=== PATIENT | male | born 1955 | race Caucasian/White ===

== ENCOUNTER 2017-04-30 07:58 | Inpatient (IN) | payer OTHER ==
--- NOTE | 2017-03-31 11:49 | HISTORY & PHYSICAL EXAMINATION ---
DATE OF ADMISSION: 04/30/2017 SUBJECTIVE CHIEF COMPLAINT: Left shoulder pain. HISTORY OF PRESENT ILLNESS: The patient is a 61-year-old male who complains of left shoulder pain. He presents with pain and decreased range of motion on the left side. He states his symptoms began after falling down the stairs and catching himself with left arm. The patient has a previous history of a left rotator cuff repair. He describes the pain as aching, sharp and throbbing. He has tried cortisone injections and physical therapy with no relief and he would like to proceed with a left reverse total shoulder arthroplasty. PAST MEDICAL HISTORY: Significant for hypertension, hypercholesterolemia, anxiety, depression, history of hepatitis B. PAST SURGICAL HISTORY: Back surgery x2, right hip arthroplasty, bilateral shoulder arthroscopy, tonsillectomy. SOCIAL HISTORY: The patient states he drinks alcohol occasionally. He denies smoking or tobacco use. He denies IV drug use. He lives in a 2-story house and currently unemployed. FAMILY HISTORY: Mom has a history of heart disease and stroke. ALLERGIES: No known drug allergies. MEDICATIONS: Wellbutrin 200 mg daily, Tricor 145 mg daily, lisinopril 20 mg daily, simvastatin 20 mg daily. REVIEW OF SYSTEMS: He denies headaches, fevers, chills, double vision, blurry vision, sore throat, cough, chest pain, nausea, vomiting, diarrhea, constipation, numbness, tingling, tired, urinary difficulties, thoughts to harm himself or harm others. He is positive for joint pain and stiffness of the left shoulder as well as a history of depression. OBJECTIVE: GENERAL APPEARANCE: The patient is a 61-year-old male sitting in no acute distress, well dressed, well nourished. He is awake, alert and oriented x3. VITAL SIGNS: He is 5 foot 7 inches tall, weighs 180 pounds, blood pressure is 108/74. HEAD, EYES, EARS, NOSE, AND THROAT: Normocephalic, atraumatic. Extraocular movements are intact. PERRLA. Mucosa was moist. No septal deviation. NECK: Supple, no lymphadenopathy, no JVD, no thyromegaly. HEART: Regular rate and rhythm with no murmurs or gallops. LUNGS: Clear to auscultation. No wheezing or rhonchi. ABDOMEN: Soft, nontender, nondistended. Normal bowel sounds, no hepatosplenomegaly. EXTREMITIES: Paying particular attention to the left upper extremity he is able to actively flex to 90 degrees, abduct to 90 degrees, externally rotate to 10 degrees. There is diffuse tenderness throughout the shoulder. NEUROLOGIC EXAMINATION: Cranial nerves II-XII were intact. Pulses were compared bilaterally and were equal. IMAGING: X-rays of the left shoulder show bone on bone of the glenohumeral joint with osteophyte formation. IMPRESSION: Degenerative joint disease of the left shoulder. PLAN: The patient is scheduled for a left reverse total shoulder arthroplasty. The patient has failed conservative therapies of cortisone injections and physical therapy. The patient has a history of a rotator cuff repair on the left side. MRI demonstrated a full thickness tear with retraction back to the glenoid. The patient would like to proceed with a left reverse total shoulder arthroplasty. Risks and benefits were discussed with the patient and included but not limited to infection, DVT, pain, stiffness, need for revision surgeries, failure to relieve all symptoms, damage to blood vessels, damage to nerves, PE and . The patient understands these risks and he wishes to proceed. All questions were answered to his satisfaction. No DVT prophylaxis is needed at this time. On discharge he would like to go home with home health. His postop visits to the office will be on 05/12/2017 at 1:15 p.m. JANNIE
[2017-04-13 13:28] VITALS: Ht 168.9 cm; Wt 81.1 kg
--- NOTE | 2017-04-13 13:56 | PAT Medication Instructions ---
Service Date April 13, 2017. Current Home Medication List Bupropion HCl (Bupropion HCl Xl), 150 MG PO QAM Fenofibrate (Tricor ), 145 MG PO QAM Hydrocodone/Acetaminophen 5MG/500MG (Vicodin 5MG/500MG), 1-2 TABLETS PO Q4-6HR PRN Lisinopril (Prinivil), 10 MG PO QAM Multivitamin (Multivitamin), 1 TAB PO QAM Nabumetone (Relafen), 500 MG PO BID Simvastatin (Zocor), 20 MG PO QAM Medication Instructions For Your Scheduled Surgery - Hold the following medications the morning of surgery: Fenofibrate (Tricor ), 145 MG PO QAM Lisinopril (Prinivil), 10 MG PO QAM Multivitamin (Multivitamin), 1 TAB PO QAM Nabumetone (Relafen), 500 MG PO BID (otherwise okay to continue per surgeon) - Take the following medications the morning of surgery with a sip of water OTHERWISE NOTHING TO EAT OR DRINK AFTER MIDNIGHT: Bupropion HCl (Bupropion HCl Xl), 150 MG PO QAM Simvastatin (Zocor), 20 MG PO QAM Hydrocodone/Acetaminophen 5MG/500MG (Vicodin 5MG/500MG), 1-2 TABLETS PO Q4-6HR PRN (may take f needed up to 4 hours prior to surgery) - Take the following medications as scheduled the night before surgery: Hydrocodone/Acetaminophen 5MG/500MG (Vicodin 5MG/500MG), 1-2 TABLETS PO Q4-6HR PRN Nabumetone (Relafen), 500 MG PO BID If you have any questions please call us at [phone] or [phone] or [phone]
--- NOTE | 2017-04-13 14:56 | DIAGNOSTIC IMAGING REPORT ---
CHEST PREADMISSION(PA/LAT) CLINICAL HISTORY: Preoperative evaluation. COMPARISON STUDY: Chest radiograph February 12, 2011. FINDINGS: Lung volumes are normal. There is no pneumothorax or pleural effusion. There are multiple old healed left rib fractures. Pulmonary vascularity is normal. Cardiac size is normal. Mediastinal contours are normal. There is no consolidation to suggest pneumonia. IMPRESSION: No acute cardiopulmonary findings. Electronically signed by: Fred Stewart M.D. 04/13/2017 2:55 PM Dictated Date/Time: 04/13/2017 2:54 PM
[2017-04-13 15:07] LABS: PROTHROMBIN TIME (PATIENT) 10.8 SECONDS (9.0-12.0)
[2017-04-13 15:16] LABS: BASO % 0.7 %; BASO ABS # 0.03 K/uL (0-0.2); COMPLETE YES; EOS % 3.2 %; HEMATOCRIT 38.5 % (42-52); LYMPH % 48.1 %; LYMPH ABS # 2.12 K/uL (1.2-3.4); MEAN CORPUSCULAR HEMOGLOBIN 30.6 pg (25-34); MEAN PLATELET VOLUME 10.6 fL (7.4-10.4); MONO % 8.4 %; NEUT % 39.6 %; PLATELET COUNT 270 K/uL (130-400); RED BLOOD COUNT 4.28 M/uL (4.7-6.1); WHITE BLOOD COUNT 4.41 K/uL (4.8-10.8)
[2017-04-13 15:31] LABS: BUN/CREATININE RATIO 23.3 (10-20); CALCIUM 8.7 mg/dl (8.5-10.1); CREATININE 0.79 mg/dl (0.60-1.40); POTASSIUM 4.1 mmol/L (3.5-5.1)
[2017-04-14 05:43] LABS: ESTIMATED AVERAGE GLUCOSE 105 mg/dl; HA1C FLAG Normal (Normal)
[2017-04-30] VITALS (8 sets, daily range): BP systolic 108–138; BP diastolic 67–82; PULSE 66–99; TEMP 36.5–36.9; O2SAT 93–97
[~2017-04-30] VITALS: Ht 168.9 cm; Wt 81.1 kg
[~2017-04-30 07:58] MED LIST: ACETAMINOPHEN 500 MG TAB PO SCH; CEFAZOLIN 2000 MG/60 ML D5W 60 ML IV SCH; CeleBREX 200 MG CAP PO SCH; DEXAMETHASONE 4 MG TAB PO SCH; FAMOTIDINE 20 MG TAB PO SCH; FENO145T26 PO; GABAPENTIN 300 MG CAP PO SCH; LACTATED RINGER'S 1000ML 1,000 ML IV SCH; LACTATED RINGER'S 1000ML IV SCH; LISI10TA PO; LRT5 PO; METOCLOPRAMIDE HCL 10 MG TAB PO SCH; MULT-506 PO; NABU500T3 PO; ROPIVACAINE 5MG/ML 30 ML 150 MG, BUPIVACAINE/EPINEPHR 0.5% MPF 30 ML, KETOROLAC TROMETH... INFIL SCH; SIMV20TA2 PO; WLLXL150 PO
[2017-04-30] MEDS ORDERED: DEXAMETHASONE SOD INJ 4 MG/ML VIAL ONE ×2 (08:00→10:53)
[2017-04-30] MEDS ORDERED: BUPIVACAINE 0.5 % 5 MG/1 ML PF 10ML VIAL ONE (08:00)
[2017-04-30] MEDS ORDERED: FENTANYL CITRATE INJ 50 MCG/1 ML 2 ML VIAL ONE (08:31)
[2017-04-30] MEDS ORDERED: MIDAZOLAM HCL 1 MG/ML 2ML VIAL ONE (08:32)
--- NOTE | 2017-04-30 08:55 | History & Physical Bridge Note ---
H&P Re-Evaluation Bridge Note: I have examined the patient, reviewed the History & Physical and in the interval since the performance of the History & Physical I have noted the following changes of clinical significance: No changes noted
[2017-04-30] MEDS ORDERED: POVIDONE-IODINE OP SOLN 30 ML BTL ONE (09:27)
[2017-04-30] MEDS ORDERED: BACITRACIN 50000 UNIT VIAL ONE (09:27)
[2017-04-30] MEDS ORDERED: ORTHO JOINT ANESTHETIC ONE (09:27)
[2017-04-30] MEDS ORDERED: LACTATED RINGER'S 1000ML 1,000 ML IV PRN (09:35)
[2017-04-30] MEDS ORDERED: ONDANSETRON INJ 2 MG/ML 2 ML VIAL IV PRN ×2 (09:45→12:15)
[2017-04-30] MEDS ORDERED: FENTANYL CITRATE INJ 50 MCG/1 ML 2 ML VIAL IV PRN (09:45)
[2017-04-30] MEDS ORDERED: GLYCOPYRROLATE INJ 0.2 MG/ML VIAL ONE (10:53)
[2017-04-30] MEDS ORDERED: EpHEDrine SULFATE 50MG/5ML SYR ONE (10:53)
[2017-04-30] MEDS ORDERED: LIDOCAINE HCL 2% 2 ML VIAL (20MG/ML) ONE (10:53)
[2017-04-30] MEDS ORDERED: ONDANSETRON INJ 2 MG/ML 2 ML VIAL ONE (10:53)
[2017-04-30] MEDS ORDERED: ROCURONIUM BROMID 50MG/5ML SYR ONE (10:53)
[2017-04-30] MEDS ORDERED: PROPOFOL IV EMULSION 10 MG/ML 20 ML VIAL IV ONE (10:53)
[2017-04-30] MEDS ORDERED: NEOSTIGMINE METHYLSULFATE 5 MG/5 ML SYR ONE (10:53)
[2017-04-30] MEDS ORDERED: OXYCODONE HCL IR 5 MG TAB (IMMEDIATE RELEASE) PO PRN (12:15)
[2017-04-30] MEDS ORDERED: MAGNESIUM HYDROXIDE SUSP 30 ML UDC PO PRN (12:15)
[2017-04-30] MEDS ORDERED: BISACODYL 10 MG SUPP PR PRN (12:15)
[2017-04-30] MEDS ORDERED: ZOLPIDEM TARTRATE 5 MG TAB PO PRN (12:15)
[2017-04-30] MEDS ORDERED: ALUMINUM/MAGNESIUM SUSP 30 ML UDC PO PRN (12:15)
--- NOTE | 2017-04-30 12:42 | Anesthesiology Progress Note ---
Anesthesia Post Op Note Date & Time Apr 30, 2017 at 12:43 Vital Signs Pain Intensity: 0 Vital Signs Past 12 Hours Date Time Temp Pulse Resp B/P (MAP) Pulse Ox O2 Delivery O2 Flow Rate FiO2 04/30/17 12:35 73 16 131/75 97 Mask 10 04/30/17 12:26 81 16 124/64 97 Mask 10 04/30/17 12:16 89 16 137/77 97 Mask 10 04/30/17 12:09 36.4 85 16 141/69 96 Mask 04/30/17 08:40 36.7 66 20 123/82 96 Room Air Notes Mental Status: alert / awake / arousable, participated in evaluation Pt Amnestic to Procedure: Yes Nausea / Vomiting: adequately controlled Pain: adequately controlled Airway Patency, RR, SpO2: stable & adequate BP & HR: stable & adequate Hydration State: stable & adequate Anesthetic Complications: no major complications apparent
--- NOTE | 2017-04-30 12:49 | [facility] Post Operative Brief Note ---
Immediate Operative Summary Operative Date Apr 30, 2017. Pre-Operative Diagnosis Left Shoulder Degenerative Joint Disease and rotator cuff arthropathy Post-Operative Diagnosis same Procedure(s) Performed Left Reverse Total Shoulder Arthroplasty Surgeon Dr. Eris Schrader Cone Runner Surgeon(s) Mitchel Huitron PA-C Estimated Blood Loss 20mL Findings above Specimens A. Left Humeral Head Drains 1 hemovac Anesthesia geta, interscalene Complication(s) None Disposition Recovery Room / PACU
--- NOTE | 2017-04-30 13:05 | DIAGNOSTIC IMAGING REPORT ---
LEFT SHOULDER MIN 2 VIEWS ROUTINE CLINICAL HISTORY: Post shoulder surgery COMPARISON: None. DISCUSSION: Evidence for a total left shoulder arthroplasty. Good contact between prosthetic and underlying bone. Several old left-sided rib fractures. IMPRESSION: Anatomic alignment status post total left shoulder arthroplasty. Electronically signed by: Mario Justin M.D. 04/30/2017 1:03 PM Dictated Date/Time: 04/30/2017 1:02 PM
[2017-04-30] MEDS: D5W AND 1/2NSS + 20MEQ KCL 1,000 ML IV SCH (14:39)
[2017-04-30] MEDS: CEFAZOLIN IV 2,000 MG in DEXTROSE 5% 50ML 50 ML IV SCH (18:01)
[2017-04-30] MEDS: FERROUS GLUCONATE 324 MG TAB PO SCH (18:01)
--- NOTE | 2017-04-30 20:15 | OPERATIVE REPORT ---
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 POSTOPERATIVE DIAGNOSES: Same. PROCEDURE: Left reverse total shoulder arthroplasty. SURGEON: Dr. Eris Schrader. HARBOR DEPARTMENT MANAGER: Christ Huitron PA-C, who was necessary for assistance with the procedure with positioning, prepping, draping, retraction and closure. ANESTHESIA: General endotracheal anesthesia with interscalene block. SPECIMENS: Humeral head. IMPLANTS: Exactech Equinoxe 11-mm stem, 38-mm glenosphere, +0 humeral tray, +0 humeral liner, and standard glenoid plate. COMPLICATIONS: None. DRAINS: One medium Hemovac. INDICATIONS: The patient is a 61-year-old male, who had previously undergone left shoulder rotator cuff repair. He had a massive irreparable rotator cuff tear with significant humeral head elevation with secondary degenerative joint disease with [id number] articulation, both in the glenohumeral joint as well as acetabularization of the shoulder with articulation of the humeral head with the glenoid. Failing conservative measures including injection, anti-inflammatories and rehabilitation, he wished to proceed with a left reverse total shoulder arthroplasty. Risks, benefits and alternatives to surgery including, but not limited to infection, DVT, pain, stiffness, need for revision surgery, failure to relieve all symptoms, damage to blood vessels, damage to nerves, and risks of anesthesia were discussed with the patient and he wished to proceed. DESCRIPTION OF PROCEDURE: The patient was identified, the laterality was confirmed and marked. He received a preoperative antibiotic as well as interscalene block. He was transferred to the operating room and placed in the supine position. He was then safely transferred to a beachchair position with the [facility] positioner. The left shoulder was then prepped and draped in the usual standard manner and secured with the spider. We made a longitudinal incision just lateral to the coracoid, sharply incising through the skin utilizing Bovie electrocautery to achieve hemostasis. We mobilized the cephalic vein laterally with the deltoid and developed the deltopectoral interval. He had evidence of a previous rupture of the long head of biceps tendon. There was minimal subscapularis tissue remaining, what was remaining was released. I released the inferior capsule and removed the inferior osteophytes. I then pinned into place my humeral head cutting guide, made my humeral head resection and then sequentially reamed and sequentially broached up to a size 11. I then placed a 9-mm trial into position and exposed the glenoid. I excised the glenoid labrum as well as residual biceps tendon stump. I placed a drill guide into position, drilled into the glenoid and then reamed with a 38-mm reamer. I then drilled for the central post of the glenoid plate, bone grafted the central post for the glenoid plate from bone rotated from the humeral head and then impacted this into position. I then placed 4 compression screws into position and secured with locking caps. I then placed a 38-mm glenosphere into position and secured it with a set screw. I then removed the trial humeral stem and impacted the definitive 11-mm press fit humeral stem. I then trialed with a +0 tray and +0 liner. This gave us good fit and good tensioning. All the trial components were removed. Wound was thoroughly irrigated. I placed the definitive +0 humeral tray into position and locked it into place with the torque-limiting screw and then impacted my definitive +0 humeral liner. The shoulder was then reduced. The soft tissues were anesthetized with an ortho mix solution. Deep drain was placed. Deltopectoral interval was closed with interrupted #1 Ethibond sutures, subcutaneous tissue with interrupted 2-0 Vicryl suture and skin with angelina. Sterile dressing was applied and sling placed. All needle and sponge counts were correct at the end of the procedure. The patient was transferred to PACU in stable condition without apparent complication. I attest to the content of the Intraoperative Record and any orders documented therein. Any exception s are noted below.
[2017-04-30] MEDS: CeleBREX 200 MG CAP PO SCH (20:22)
[2017-04-30] MEDS: DOCUSATE SODIUM 100 MG CAP PO SCH (20:22)
[2017-04-30] MEDS: OXYCODONE HCL 10 MG TABCR (OXYCONTIN) PO SCH (20:23)
[2017-04-30] MEDS: ACETAMINOPHEN 500 MG TAB PO SCH (22:07)
[2017-05-01] MEDS: D5W AND 1/2NSS + 20MEQ KCL 1,000 ML IV SCH (00:44)
[2017-05-01] MEDS: CEFAZOLIN IV 2,000 MG in DEXTROSE 5% 50ML 50 ML IV SCH ×2 (01:56→10:20)
[2017-05-01 04:19] VITALS: BP 110/67; PULSE 63; TEMP 36.4; O2SAT 94
[2017-05-01 04:25] VITALS: BP 115/67; PULSE 80; TEMP 36.7; O2SAT 96
[2017-05-01] MEDS: ACETAMINOPHEN 500 MG TAB PO SCH (05:46)
[2017-05-01 06:08] LABS: HEMATOCRIT 34.7 % (42-52); MEAN CELL VOLUME 91.3 fL (80-100); MEAN CORPUSCULAR HEMOGLOBIN 30.3 pg (25-34); MEAN CORPUSCULAR HGB CONC 33.1 g/dl (32-36); MEAN PLATELET VOLUME 10.4 fL (7.4-10.4); PLATELET COUNT 250 K/uL (130-400); WHITE BLOOD COUNT 9.07 K/uL (4.8-10.8)
[2017-05-01 06:10] LABS: INR 1.1 (0.9-1.1); PROTHROMBIN TIME (PATIENT) 11.4 SECONDS (9.0-12.0)
[2017-05-01 06:41] LABS: BUN/CREATININE RATIO 14.2 (10-20); CALCIUM 8.1 mg/dl (8.5-10.1); CREATININE 0.94 mg/dl (0.60-1.40)
[2017-05-01 07:02] VITALS: BP 106/66; PULSE 70; TEMP 36.4; O2SAT 94
[2017-05-01] MEDS: FERROUS GLUCONATE 324 MG TAB PO SCH (08:46)
[2017-05-01] MEDS: CeleBREX 200 MG CAP PO SCH (08:46)
[2017-05-01] MEDS: DOCUSATE SODIUM 100 MG CAP PO SCH (08:46)
[2017-05-01] MEDS: OXYCODONE HCL 10 MG TABCR (OXYCONTIN) PO SCH (08:47)
[2017-05-01] MEDS ORDERED: MULTIVITAMIN TAB PO SCH (09:00)
[2017-05-01] MEDS ORDERED: PANTOprazole SOD 40 MG TAB PO SCH (09:00)
--- NOTE | 2017-05-01 09:21 | Orthopedic Progress Note ---
Orthopedic Progress Note Date of Service May 01, 2017. Subjective Post OP Day: 1 Reports: feeling well, pain controlled w PO medications, Denies: complaints, chest pain, SOB, nausea / vomiting, light headedness, calf pain Objective N/V intact, capillary refill less than 2 sec., dressing C/D/I, A&O x3 SLING IN TACT, FINGERS MOBILE Date Time Temp Pulse Resp B/P (MAP) Pulse Ox O2 Delivery O2 Flow Rate FiO2 05/01/17 07:35 Room Air 05/01/17 07:02 36.4 70 16 106/66 (79) 94 Room Air 05/01/17 04:25 36.7 80 16 115/67 (83) 96 Room Air 04/30/17 23:05 36.8 86 18 118/68 (85) 96 Room Air 04/30/17 20:05 Room Air 04/30/17 19:12 36.9 99 18 112/70 (84) 93 Room Air 04/30/17 16:28 36.8 89 16 108/67 (81) 95 Nasal Cannula 2.0 04/30/17 15:39 Nasal Cannula 2.0 04/30/17 15:30 36.8 96 16 116/77 (90) 95 Nasal Cannula 2.0 04/30/17 14:36 36.6 99 18 138/81 (100) 97 Nasal Cannula 2.0 04/30/17 14:02 36.5 76 19 132/71 (91) 94 Nasal Cannula 2.0 04/30/17 13:15 36.8 70 16 113/67 94 Nasal Cannula 2 04/30/17 13:00 36.8 74 16 129/70 (89) 93 Nasal Cannula 2.0 04/30/17 13:00 Nasal Cannula 2.0 04/30/17 13:00 78 16 122/68 97 Nasal Cannula 2 04/30/17 13:00 93 Venturi Mask 2.0 04/30/17 12:45 36.4 72 16 127/90 97 Nasal Cannula 2 04/30/17 12:35 73 16 131/75 97 Mask 10 04/30/17 12:26 81 16 124/64 97 Mask 10 04/30/17 12:16 89 16 137/77 97 Mask 10 04/30/17 12:09 36.4 85 16 141/69 96 Mask 10 Laboratory Results 24 Hours: Test 05/01/17 05:30 Hematocrit 34.7 % Hemoglobin 11.5 g/dL Prothromb Time International Ratio 1.1 Prothrombin Time 11.4 SECONDS Assessment & Plan Assessment: POD#1, LEFT REVERSED TSA Plan: PT/ OT D/C PLANNING- HOME TODAY Inhouse Planning Pain Management: Celebrex, Oxycontin, PO Tylenol, Oxy IR DVT Prophylaxis: TEDs, SCDs Discharge Planning Discharge Planning: home
[2017-05-01] MEDS ORDERED: RXC5 PO (09:24)
[2017-05-01] MEDS ORDERED: OXYSR10 PO (09:24)
[2017-05-01] MEDS ORDERED: CLB200 PO (09:24)
--- NOTE | 2017-05-01 09:26 | Discharge Instructions ---
Discharge Instructions Date of Service May 01, 2017. Admission Reason for Admission: Left Shoulder Arthropathies Discharge Discharge Diagnosis / Problem: LEFT REVERSED TSA Discharge Goals Goal(s): Improve function Activity Recommendations Activity Limitations: as noted below . Instructions / Follow-Up Instructions / Follow-Up ACTIVITY RECOMMENDATIONS: SELF CARE INSTRUCTIONS AFTER TOTAL SHOULDER ARTHROPLASTY REVERSE A. You may do daily exercises as taught in physical therapy while in hospital. No lifting with the operative arm. B. You are to wear your sling/immobilizer at all times EXCEPT when performing your daily exercises and for hygiene purposes. C. You may perform dry, daily dressing changes. Please keep your incision covered. You may shower 48 hours after surgery. Do not apply soap or any ointment/ lotions directly over incision. Do not soak incision in bath tub/swimming pool. D. You may use ice as needed to operative shoulder. SPECIAL CARE INSTRUCTIONS: VERY IMPORTANT TO READ AND REVIEW A. There are a few signs you need to watch for after you are home. Call [facility] at [phone] if you experience any of the followin. Increased severe shoulder pain. Some pain is expected especially when you exercise. 2. Increased swelling in you shoulder or arm; pain or swelling in either upper extremity. 3. Any fluid drainage from the incision. 4. Shortness of breath or chest pain. B. Please call [facility] at [phone] if you have any questions or concerns about your operation or recovery. C. Call your physician if: 1. Temperature is greater than 101 degrees (F). 2. Pain is not relieved by prescribed pain medications. 3. Increase drainage or redness from incision. 4. Unanswered questions or concerns. FOLLOW UP VISIT: Please call [facility] at [phone] to schedule a follow up appointment with Dr. Davis or his PA in 12-14 days from your surgery date. NO FORMAL PT UNTIL FOLLOW UP IN THE OFFICE. Current Hospital Diet Patient's current hospital diet: Regular Diet Discharge Diet Recommended Diet: Regular Diet Procedures Procedures Performed: Left Reverse Total Shoulder Arthroplasty Pending Studies Studies pending at discharge: no Laboratory Results Hemoglobin A1c Test 04/13/17 14:00 Range/Units Estimated Average Glucose 105 mg/dl Hemoglobin A1c 5.3 4.5-5.6 % Medical Emergencies . Who to Call and When: Medical Emergencies: If at any time you feel your situation is an emergency, please call 911 immediately. . Non-Emergent Contact Non-Emergency issues call your: Primary Care Provider . "Provider Documentation" section prepared by Mario Salmeron. . VTE Core Measure Inpt VTE Proph given/why not?: Sahara Vera, VICTORIA's [place] Drug Monitoring Program Search Results: patient reviewed within database, no issues identified
[2017-05-01 11:46] VITALS: BP 106/66; PULSE 70; TEMP 36.4; O2SAT 94
--- NOTE | 2017-05-07 16:10 | DISCHARGE SUMMARY ---
ADMISSION DIAGNOSIS: Left shoulder osteoarthritis. DISCHARGE DIAGNOSIS: Status post left reversed total shoulder arthroplasty. CONSULTS: None. PROCEDURE: On 04/30/2017 the patient underwent a left reversed total shoulder arthroplasty. HISTORY OF PRESENT ILLNESS: The patient is a 61-year-old male who complains of left shoulder pain. He describes the pain as aching, sharp and throbbing. He has decreased range of motion on the left side. He states the symptoms began after falling down the stairs, he tried to catch himself with his left arm. He does have a previous history of a left rotator cuff repair and he would like to proceed with a left total shoulder arthroplasty. HOSPITAL COURSE: Postop day 1, the patient was feeling well. Pain was controlled with p.o. medications. He denied any chest pain, shortness of breath, nausea, vomiting, lightheadedness, or calf pain. Dressing was intact. Fingers were mobile. His plan was to be discharged home on postop day #1. DISCHARGE CONDITION: Stable. DISCHARGE DISPOSITION: Home with self-care. MEDICATIONS: Celebrex 200 mg by mouth twice daily for 30 days, OxyContin 10 mg by mouth every 12 hours, oxycodone 5-10 mg by mouth every 4 hours as needed for pain, bupropion 150 mg by mouth daily in the morning, fenofibrate 145 mg by mouth daily in the morning, lisinopril 10 mg by mouth daily in the morning, multivitamin 1 tablet by mouth daily in the morning, simvastatin 20 mg by mouth daily in the morning. DISCHARGE INSTRUCTIONS: He is to resume a regular diet. He is allowed to do daily exercises as taught in physical therapy while in the hospital. No lifting with the operative arm. He is to wear his sling or immobilizer at all times except when performing daily exercises or for hygiene purposes. He may perform dry daily dressing changes, keep the incision covered. He may shower 48 hours after the surgery, do not apply soap or lotions directly over the incision and do not soak the incision in a bathtub or a swimming pool. He may ice the shoulder as needed. Silverlon dressing can be removed 7 days after the surgery and dry dressings can then be applied. He is to call [facility] if he notices any increasing pain, any increasing drainage or increase in redness from the incision site. He is to follow up with Dr. Schrader or his PA in 12-14 days from the date of the surgery. JANNIE
== END 2017-05-01 13:45 | disposition home or self-care (01) | DRG 483 ==
LOC: C.ACU 07:58 → C.3E 09:32 → ENRESERV 13:14
PROVIDERS: ADMIT Orthopaedic Surgery; ATTEND Orthopaedic Surgery
PROC: 0RRK00Z Replacement of Left Shoulder Joint with Reverse Ball and Socket Synthetic Substitute, Open Approach (ICD-10-PCS; principal; 2017-04-30 10:30)
DX: M19.112 Post-traumatic osteoarthritis, left shoulder (principal); S46.012A Strain of muscle(s) and tendon(s) of the rotator cuff of left shoulder, initial encounter; W10.9XXA Fall (on) (from) unspecified stairs and steps, initial encounter; I10 Essential (primary) hypertension; E78.00 Pure hypercholesterolemia, unspecified; F41.9 Anxiety disorder, unspecified; F32.9 Major depressive disorder, single episode, unspecified; Z96.641 Presence of right artificial hip joint; Z86.19 Personal history of other infectious and parasitic diseases; Z87.891 Personal history of nicotine dependence; Z87.898 Personal history of other specified conditions; Z79.891 Long term (current) use of opiate analgesic; Z79.899 Other long term (current) drug therapy

== ENCOUNTER 2022-01-29 06:39 | Inpatient (IN) ==
--- NOTE | 2021-12-29 16:13 | PAT Medication Instructions ---
Medication Instructions Date of Service December 29, 2021 Home Medications Medication Instructions Recorded bupropion HCl 150 mg tablet,12 hr 150 mg PO BID #60 ea 11/11/21 sustained-release fenofibrate nanocrystallized 145 145 mg PO QAM #90 tab 11/11/21 mg tablet lisinopril 10 mg tablet 10 mg PO QAM #90 tab 11/11/21 simvastatin 20 mg tablet 20 mg PO QAM #90 tab 11/11/21 acetaminophen 500 mg capsule 500 mg PO Q6H PRN multivitamin 1 tab PO QAM bupropion HCl 150 mg tablet,12 hr sustained-release 150 mg PO BID fenofibrate nanocrystallized 145 mg tablet 145 mg PO QAM lisinopril 10 mg tablet 10 mg PO QAM simvastatin 20 mg tablet 20 mg PO QAM meloxicam 15 mg tablet 15 mg PO QAM ASK your surgeon for instructions meloxicam 15 mg tablet 15 mg PO QAM STOP taking 48 hours before surgery fenofibrate nanocrystallized 145 mg tablet 145 mg PO QAM DO NOT take the morning of surgery multivitamin 1 tab PO QAM lisinopril 10 mg tablet 10 mg PO QAM Take morning of surgery With a small sip of water, OTHERWISE NOTHING TO EAT OR DRINK AFTER MIDNIGHT: acetaminophen 500 mg capsule 500 mg PO Q6H PRN (okay to take up to 4 hours prior to surgery if needed) bupropion HCl 150 mg tablet,12 hr sustained-release 150 mg PO BID simvastatin 20 mg tablet 20 mg PO QAM Take evening before surgery acetaminophen 500 mg capsule 500 mg PO Q6H PRN (if needed) bupropion HCl 150 mg tablet,12 hr sustained-release 150 mg PO BID Other Notes If you have any questions please call us at [phone] or [phone] or [phone] or [phone]
--- NOTE | 2021-12-30 10:42 | Anesthesiology Consultation ---
Date of Service December 30, 2021 Assessment & Plan (1) Encounter for pre-operative examination: - surgeon ordered medical clearance. - awareness during anesthesia: during hip surgery including pt attempting to get up. - COVID screening: Per assessment on 12/30/2021: Travel screen negative, no known COVID-19 positive contacts or current COVID-19 related symptoms in past 2 weeks. Patient vaccinated. Surgeon arranging preop COVID testing, scheduled 01/27/2022. Awaiting results. Chart Review Chart Review: Pending: Refer to Additional Notes / Consult section and Patient seen in Pre Admission Testing Teaching & Discussion Pre-Anesthesia Teaching/Discussion Notes: Instructed NPO after midnight before surgery, except medications with 15 cc of water. Medication instructions provided according to the PAT guidelines. History Surgery Operation Date: 01/29/22 07:45 Proposed Procedures p L2-L4 Decompression Fusion Spinal Cord Monitoring - Clark Urrutia DO Height/Weight Height: 5 ft 6 in Weight: 89.3 kg Allergies Allergy/AdvReac Type Severity Reaction Status Date / Time No Known Allergies Allergy Verified 12/29/21 14:15 Medications Home Medications Medication Instructions Recorded Confirmed Last Taken acetaminophen 500 mg capsule 500 mg PO Q6H PRN 12/03/20 12/29/21 Unknown multivitamin 1 tab PO QAM 12/03/20 12/29/21 Unknown bupropion HCl 150 mg tablet,12 hr 150 mg PO BID #60 ea 11/11/21 12/29/21 Unknown sustained-release fenofibrate nanocrystallized 145 145 mg PO QAM #90 tab 11/11/21 12/29/21 Unknown mg tablet lisinopril 10 mg tablet 10 mg PO QAM #90 tab 11/11/21 12/29/21 Unknown simvastatin 20 mg tablet 20 mg PO QAM #90 tab 11/11/21 12/29/21 Unknown meloxicam 15 mg tablet 15 mg PO QAM 12/29/21 12/29/21 Unknown Past Medical History Medical History (Updated 12/31/21 @ 09:06 by Chayo Abad PA-C) Anxiety Chronic back pain COVID-19 POS TEST 11/05/20 [facility] COUGH, SOB, DIARRHEA SYMPTOMS RESOLVED Depression History of colon polyps History of hepatitis B History of substance abuse none x 20 yrs Hyperlipidemia Hypertension controlled, stable per pt Osteoarthritis Patient denies h/o stroke, seizures, heart attack, heart failure, DM, blood clots or blood transfusions. Exercise / Class Metabolic Activity II 4-5 Yardwork/Stairs/Walk up hill (denies CP or SOB with 1 FOS) Past Family History Family History Mother Alzheimer disease Asthma Depression Breast cancer Diabetes Heart disease Hypertension Stroke Brother COPD (chronic obstructive pulmonary disease) Diabetes Hypertension Father Diabetes Hypertension Sister Diabetes Hypertension Kidney disease Denies family history of Ovarian cancer Prostate cancer Myocardial infarction Lung cancer Colorectal cancer Past Surgical History Surgical History History of anesthesia reaction "KEPT TRYING TO GET UP DURING HIP SURGERY TILL THEY GAVE HIM MORE" History of back surgery History of carpal tunnel release of both wrists History of colonoscopy History of eye surgery RIGHT/LEFT CORNEAL SURGERY History of hip surgery RIGHT History of knee surgery RIGHT SIDE History of reverse total replacement of left shoulder joint History of shoulder surgery LEFT/RIGHT History of tonsillectomy and adenoidectomy Past Anesthesia History No Family Hx of Anesthesia Complications and Other (awareness during hip surgery attempting to get up) History of PONV No Hx of PONV and No Hx of Motion Sickness Social History Smoking Status: Former smoker Do You Dip or Chew Tobacco: No Smoking End Date: 2002 Hx Alcohol Use: No Alcohol Intake Frequency Comment: no current use Hx Substance Use: No substance use type: does not use Substance Use Type Other:: FORMER DRUG USER-QUIT 20 YRS AGO Review of Systems Snoring, denies witnessed apneas or sleep studies. Patient denies chest pain, shortness of breath, dyspnea on exertion, reflux, fe evan, chills, cough, wheezing, or palpitations. Physical Exam Vital Signs Vitals BP 135/80 P 85 TEMP 98.3 SP02 94% on RA RESP 17 Physical Severely limited cervical extension range of motion without pain Full TMJ range of motion TMD 3 finger breaths Mallampati Score 3 Dentition: edentulous Lungs: normal respiratory effort. Clear throughout to auscultation, no adventitious breath sounds Cardiac: regular rate and rhythm, no murmurs noted Carotid arteries: negative bruit bilat Extremities: no distal extremity edema Lab Results Anesthesia Preop Results Results Anesthesia Widget: WBC 5.76 K/uL (4.8-10.8) 02/08/22 Hgb 14.1 g/dL (14.0-18.0) 12/30/21 Hct 42.9 % (42-52) 12/30/21 Plt 252 K/uL (130-400) 12/30/21 Na 142 mmol/L (136-145) 12/30/21 K 4.0 mmol/L (3.5-5.1) 12/30/21 Cl 108 mmol/L (98-107) H 12/30/21 CO2 28 mmol/L (21-32) 12/30/21 BUN 18 mg/dl (6-23) 12/30/21 Creat 0.76 mg/dl (0.6-1.4) 12/30/21 Glucose Level 120 mg/dl (70-99(Fasting)) H 12/30/21 PT 10.7 Seconds (9.0-12.0) 12/30/21 PTT 25.6 Seconds (21.0-31.0) 12/30/21 INR 1.1 (0.9-1.1) 12/30/21 HA1c 5.6 % (4.5-5.6) 12/30/21 Urine Color Yellow 12/30/21 Urine Appearance Clear (Clear) 12/30/21 Urine pH 6.0 (4.5-7.5) 12/30/21 Urine Specific [place] 1.019 (1.000-1.030) 12/30/21 Urine Protein Negative (Negative) 12/30/21 Urine Glucose (UA) Negative (Negative) 12/30/21 Urine Ketones Negative (Negative) 12/30/21 Urine Blood Negative (Negative) 12/30/21 Urine Nitrite Negative (Negative) 12/30/21 Urine Bilirubin Negative (Negative) 12/30/21 Urine Urobilinogen Negative (Negative) 12/30/21 Urine Leukocyte Esterase 2+ (Negative) H 12/30/21 Urine WBC (Auto) 10-30 /hpf (0-5) H 12/30/21 Urine RBC (Auto) 0-4 /hpf (0-4) 12/30/21 Urine Hyaline Casts (Auto) 0 /lpf (0-5) 12/30/21 Urine Epithelial Cells (Auto) 10-20 /lpf (0-5) H 12/30/21 Urine Bacteria (Auto) Negative (Negative) 12/30/21 Blood Type O Positive 12/30/21 Antibody Screen NEGATIVE 12/30/21 Testing Electrocardiogram Date: 12/30/21 NSR, rate 68 bpm Chest X-Ray Date: 12/30/21 FINDINGS: Left shoulder arthroplasty is incidentally noted. Multiple old left rib fractures are noted. There is no pneumothorax or pleural effusion. There is no consolidation or evidence for pulmonary edema. Cardiomediastinal silhouette is unremarkable. IMPRESSION: No acute cardiopulmonary findings. No change in appearance of the chest.
[~2022-01-29 06:39] MED LIST changes: -CEFAZOLIN 2000 MG/60 ML D5W 60 ML IV SCH; -DEXAMETHASONE 4 MG TAB PO SCH; -FAMOTIDINE 20 MG TAB PO SCH; -FENO145T26 PO; -LACTATED RINGER'S 1000ML 1,000 ML IV SCH; -LACTATED RINGER'S 1000ML IV SCH; -LISI10TA PO; +LR 15ML/HR IV SCH; -LRT5 PO; -METOCLOPRAMIDE HCL 10 MG TAB PO SCH; -MULT-506 PO; -NABU500T3 PO; -ROPIVACAINE 5MG/ML 30 ML 150 MG, BUPIVACAINE/EPINEPHR 0.5% MPF 30 ML, KETOROLAC TROMETH... INFIL SCH; -SIMV20TA2 PO; -WLLXL150 PO; +ceFAZolin 2000MG 2,000 MG/15 ML SYR IV SCH
[2022-01-29] MEDS ORDERED: BUPIVACAINE/EPINEPHRINE 0.25% 1:200,000 30 ML VIAL ONE (06:59)
[2022-01-29] MEDS ORDERED: ceFAZolin 330 MG/ML 1 GM VIAL ONE (06:59)
[2022-01-29] MEDS ORDERED: fentaNYL citrate 100 MCG/2 ML VIAL ONE (07:23)
[2022-01-29] MEDS ORDERED: LABETALOL HCL IV 5 MG/ML 20ML IV PRN (07:35)
[2022-01-29] MEDS ORDERED: ATROPINE SULFATE 0.1 MG/ML 10ML SYR IV PRN (07:35)
[2022-01-29] MEDS ORDERED: MEPERIDINE HCL 25 MG/ML CARP/VIAL IV PRN (07:35)
[2022-01-29] MEDS ORDERED: ONDANSETRON INJ 2 MG/ML 2 ML VIAL IV PRN ×2 (07:35→13:18)
[2022-01-29] MEDS ORDERED: ePHEDrine sulfate 50 MG/ML AMP IV PRN (07:35)
[2022-01-29] MEDS ORDERED: PHENYLEPHRINE 100MCG/ML 5ML SYR IV PRN (07:35)
[2022-01-29] MEDS ORDERED: HYDROmorphone INJ 1 MG/ML SYRINGE IV PRN ×2 (07:35→13:18)
--- NOTE | 2022-01-29 07:36 | History & Physical Bridge Note ---
Date of Service January 29, 2022 History & Physical Bridge Note I have examined the patient, reviewed the History & Physical and in the interval since the performance of the History & Physical I have noted the following changes of clinical significance: no changes noted L1-L3 decompression, T12-L4 fusion, hardware removal L4-S1.
--- NOTE | 2022-01-29 07:37 | History & Physical Report ---
Date of Service January 29, 2022 Assessment & Plan (1) Neurogenic claudication due to lumbar spinal stenosis: Plan: L1-L3 decompression, T12-L4 fusion, hardware removal L4-S1. History of Present Illness Chief Complaint: Back and bilateral leg pain Primary Care Provider: Rochelle Cantrell PA-C This is a 66-year-old male presents with chronic persistent back and bilateral leg pain. Failing course of nonoperative care is here for surgical invention. Allergies Allergy/AdvReac Type Severity Reaction Status Date / Time No Known Allergies Allergy Verified 01/29/22 06:59 Home Medications Medication Instructions Recorded Confirmed Type acetaminophen 500 mg capsule 500 mg PO Q6H PRN 12/03/20 01/29/22 History multivitamin 1 tab PO QAM 12/03/20 01/29/22 History bupropion HCl 150 mg tablet,12 hr 150 mg PO BID #60 ea 11/11/21 01/29/22 Rx sustained-release fenofibrate nanocrystallized 145 145 mg PO QAM #90 tab 11/11/21 01/29/22 Rx mg tablet lisinopril 10 mg tablet 10 mg PO QAM #90 tab 11/11/21 01/29/22 Rx simvastatin 20 mg tablet 20 mg PO QAM #90 tab 11/11/21 01/29/22 Rx meloxicam 15 mg tablet 15 mg PO QAM 12/29/21 01/29/22 History Past Med/Surg History Medical History (Updated 01/29/22 @ 07:36 by Clark Urrutia DO) Anxiety Chronic back pain COVID-19 POS TEST 11/05/20 [facility] COUGH, SOB, DIARRHEA SYMPTOMS RESOLVED Depression History of colon polyps History of hepatitis B History of substance abuse none x 20 yrs Hyperlipidemia Hypertension controlled, stable per pt Obesity Osteoarthritis Surgical History History of anesthesia reaction "KEPT TRYING TO GET UP DURING HIP SURGERY TILL THEY GAVE HIM MORE" History of back surgery History of carpal tunnel release of both wrists History of colonoscopy History of eye surgery RIGHT/LEFT CORNEAL SURGERY History of hip surgery RIGHT History of knee surgery RIGHT SIDE History of reverse total replacement of left shoulder joint History of shoulder surgery LEFT/RIGHT History of tonsillectomy and adenoidectomy Family History Mother Alzheimer disease Asthma Depression Breast cancer Diabetes Heart disease Hypertension Stroke Brother COPD (chronic obstructive pulmonary disease) Diabetes Hypertension Father Diabetes Hypertension Sister Diabetes Hypertension Kidney disease Denies family history of Ovarian cancer Prostate cancer Myocardial infarction Lung cancer Colorectal cancer Social History Smoking Status: Former smoker Tobacco Type: Cigarettes Age Started Using Tobacco: 19; Age Quit Using Tobacco: 20; Smoking End Date: 2002; Second Hand Exposure: No; Do You Dip or Chew Tobacco: No; Hx Alcohol Use: No Preferred Language: Japanese Communication Ability: Effective Hearing Ability: Normal Scouts Required: No Beliefs That Will Affect Care: None marital status: marital status details: Has a in the [facility] but it is not legal in the [facility] Current Living Situation: Alone current occupational status: disabled How many Children do You have: 0 Other Information That Helps Us Care for You: No Feels Safe at Home: Yes Safety Concerns: Feels Safe At This Time Seatbelt Use: sometimes Sunscreen Use: No Assistive Devices: Denture - Upper and Denture - Lower Assistive Devices Comment: ONLY WEARS UPER DENTURE Physical Exam Physical Exam: Patient is alert and oriented Heart regular in rhythm Lungs clear Results & Data ([facility]) Vital Signs (Past 12 Hours) Vital Signs Temp Pulse Resp BP Pulse Ox 01/29/22 07:02 36.8 C 76 20 171/87 H 96
[2022-01-29] MEDS ORDERED: PROPOFOL IV EMULSION 10 MG/ML 20 ML VIAL IV ONE (08:09)
[2022-01-29] MEDS ORDERED: LIDOCAINE 2% 2 ML VIAL/AMP(20MG/ML) INFIL ONE (08:10)
[2022-01-29] MEDS ORDERED: DEXAMETHASONE SOD INJ 4 MG/ML VIAL ONE (08:10)
[2022-01-29] MEDS ORDERED: ONDANSETRON INJ 2 MG/ML 2 ML VIAL ONE (08:10)
[2022-01-29] MEDS ORDERED: ROCURONIUM BROMIDE 10 MG/ML 5 ML VIAL IV ONE (08:10)
[2022-01-29] MEDS ORDERED: GLYCOPYRROLATE 0.2 MG/ML VIAL ONE (08:11)
[2022-01-29] MEDS ORDERED: NEOSTIGMINE METHYLSULFATE 1 MG/ML 10ML VIAL ONE (08:11)
[2022-01-29] MEDS ORDERED: FLOSEAL HEMOSTATIC MATRIX 10ML TOP ONE (08:28)
[2022-01-29] MEDS ORDERED: PHENYLEPHRINE 100MCG/ML 5ML SYR ONE (08:47)
--- NOTE | 2022-01-29 11:04 | Operative Report ---
Post Operative Report Pre & Post Diagnosis Operation Date: 01/29/22 07:45 Pre-Op Diagnosis: Spinal Stenosis Lumbar Region with Radiculopathy Post-Op Diagnosis: Spinal Stenosis Lumbar Region with Radiculopathy I identified the patient and participated in the time-out.: Yes Procedure Operation Date: 01/29/22 07:45 Actual Procedures #1 lumbar decompression bilateral medial facetectomies and foraminotomies L1-L2 L2-L3 L3-L4. #2 posterior spinal fusion T12-L4. #3 placement posterior segmental instrumentation T12-L4. #4 interbody fusion L3-L4. #5 placement of titanium cage 12 x 26 mm at L3-L4. #6 placement locally harvested morselized autograft in the posterior gutters. #7 placement infuse collagen sponge and master graft in the posterior lateral gutters and I factor interbody space. Surgeon Clark Urrutia DO Adult Literacy Teacher None Estimated Blood Loss 350 Findings See Below Patient is 5 foot 6 inches tall weighing over 80 kg with a BMI in excess of 31. Patient body habitus did contribute to significant technical difficulty requiring deeper retractors longer instruments in order to perform his procedure. This at least 50% increased operative time. Specimens None Indications This is a 66-year-old male who presents with above-mentioned diagnosis after failing course of nonoperative care is here for surgical invention. Description of Procedure Patient met with identified informed consent obtained. Patient was then taken to the operative suite underwent ablation placed in a prone position on the Jermain table atop the Alcon frame. All bony prominences well-padded eyes inspected to ensure no external pressure placed monitor at this point the thoracolumbar spine was prepped and draped no sterile fashion. Sharp dissection with the assistance of Bovie cautery was performed down to and exposing the lamina and transverse processes of T12 L1-L2-L3 and L4 bilaterally. From caudal to cephalad fashion complete laminectomy of L3 L2 and L1 was performed including bilateral medial facetectomies and foraminotomies addressing severe spinal s tenosis. Pedicle screws and placed in T12-L1 L2-L3-L4 bilaterally with assistance of fluoroscopy the proper sized tayler contoured placed. By way of transfer approach left complete discectomy of L3-L4 was performed endplates curetted to subcortical bleeding bone and a 12 x 26 mm titanium cage filled I factor tapped in position. The rods and locked in final position. The transverse processes of T12 L1-L2-L3 and L4 burred to subcortically bone. Infuse collagen sponge master graft lobe autograft was placed in the posterior gutters. 15 round CHETAN drain inserted. The incision was then closed with 1 Vicryl fascia 2-0 Vicryl subcutaneously and 4 Monocryl for final skin closure. Steri-Strip sterile dressings placed. Patient waken taken back to stable condition. Please note spinal cord monitoring was utilized at the procedure no changes noted. Lastly I did elect to retain the previous instrumentation is is bone health was excellent and was confident fixation. I attest to the content of the Intraoperative Record and any orders documented therein. Any exceptions are noted below.
--- NOTE | 2022-01-29 11:44 | Fluoroscopy Report ---
FL lumbar spine 2-3V CLINICAL HISTORY: T12-L4 DFI TECHNIQUE: 2 views were obtained with the C-arm in the OR with the above procedure. Total fluoroscopy time was 43.5 seconds. Total skin dose was 30.49 mGy. Comparison: None available at the time of this dictation. FINDINGS/IMPRESSION: Intraoperative images were obtained of posterior spinal fixation and decompressi on. Please correlate with intraoperative fluoroscopy and operative report. ACT 112: Negative or not required by law. Electronically signed by: Albert Lucia M.D. 01/29/2022 11:43 AM
[2022-01-29] MEDS: fentaNYL citrate 100 MCG/2 ML VIAL IV PRN ×4 (11:50→12:23)
--- NOTE | 2022-01-29 12:44 | Anesthesiology Progress Note ---
Date of Service January 29, 2022 Anesthesia Post Procedure Vital Signs Vital Signs: Temp Pulse Pulse Resp BP Pulse Ox 01/29/22 12:35 36.5 C 76 18 133/73 96 01/29/22 12:25 80 14 138/82 98 01/29/22 12:15 80 18 137/78 97 01/29/22 12:05 75 14 126/76 98 01/29/22 11:55 72 20 121/70 95 01/29/22 11:45 74 16 124/66 95 01/29/22 11:35 72 19 114/67 97 01/29/22 11:25 73 23 126/72 95 01/29/22 11:19 36.3 C L 74 24 138/81 97 01/29/22 07:02 36.8 C 76 20 171/87 H 96 Pain Intensity Back: Pain Intensity: 3 Transfer of Care Handoff Completed per policy Notes Mental Status: alert / awake / arousable Patient Amnestic to Procedure: Yes Nausea / Vomiting: adequately controlled Pain: adequately controlled Airway Patency, RR, SpO2: stable & adequate BP & HR: stable & adequate Hydration State: stable & adequate Anesthetic Complications: no major complications apparent and Pt Satisfied with anesthetic care
[2022-01-29] MEDS ORDERED: ONDANSETRON 4 MG OD TAB PO PRN (13:18)
[2022-01-29] MEDS ORDERED: LORazepam 0.5 MG TAB PO PRN (13:18)
[2022-01-29] MEDS ORDERED: FAMOTIDINE 20 MG TAB PO PRN (13:18)
[2022-01-29] MEDS ORDERED: SOD PHOSPHATE/SOD BIPHOSPHATE ENEMA 132 ML BTL PR PRN (13:18)
[2022-01-29] MEDS ORDERED: NALOXONE HCL 0.4 MG/1 ML VIAL/CARP IV PRN (13:18)
[2022-01-29] MEDS ORDERED: DO NOT ADMINISTER PNEUMOCOCCAL VACCINE PRN (13:18)
[2022-01-29] MEDS ORDERED: diphenhydrAMINE Capsule 25 MG CAP PO PRN (13:18)
[2022-01-29] MEDS ORDERED: PROMETHAZINE HCL 12.5 MG in SODIUM CHLORIDE 0.9% 50 ML IV PRN (13:18)
[2022-01-29] MEDS ORDERED: DO NOT ADMINISTER FLU VACCINE PRN (13:18)
[2022-01-29] MEDS ORDERED: oxyCODONE HCL IR 5 MG TAB (IMMEDIATE RELEASE) PO PRN (13:18)
[2022-01-29] MEDS ORDERED: HYDROmorphone INJ 0.5 MG/0.5 ML SYR IV PRN (13:18)
[2022-01-29] MEDS ORDERED: ACETAMINOPHEN 500 MG TAB PO PRN (13:18)
[2022-01-29] MEDS ORDERED: LORazepam 2 MG/1 ML VIAL IV PRN (13:18)
[2022-01-29] MEDS ORDERED: hydrOXYzine HCl 25 MG TAB PO PRN (13:18)
[2022-01-29] MEDS ORDERED: ACETAMINOPHEN 1,000 MG/100 ML VIAL IV PRN (13:18)
[2022-01-29] MEDS ORDERED: ALUMINUM/MAGNESIUM SUSP 30 ML UDC PO PRN (13:18)
[2022-01-29] MEDS ORDERED: METOCLOPRAMIDE HCL INJ 5 MG/ML 2 ML VIAL IV PRN (13:18)
[2022-01-29] MEDS ORDERED: traMADol HCL 50 MG TABLET PO PRN (13:18)
[2022-01-29] MEDS: SODIUM CHLORIDE 0.9% 1000ML 1,000 ML IV SCH ×2 (14:24→23:59)
[2022-01-29] MEDS: KETOROLAC TROMETHAMINE 15 MG/ML VIAL IV SCH ×2 (14:24→20:12)
--- NOTE | 2022-01-29 16:22 | Consultation ---
Date of Consultation January 29, 2022 Assessment & Plan (1) Neurogenic claudication due to lumbar spinal stenosis: s/p lumbar decompression/fusion procedure today by Dr Urrutia. defer pain management, IV fluids, disposition to Dr Urrutia's team. (2) Hypertension: Due to acute blood loss from surgery his BPs are low-normal. Will hold his lisinopril and re-eval tomorrow am. Check BMP in am for stability. (3) Hyperlipidemia: He takes a combination of simvastatin and fenofibrate. These meds are chronic & stable. (4) Depression with anxiety: Continue wellbutrin. (5) Abdominal distension: Mild on examination post-op. Serial exams. No nausea/emesis thus far. Observe for development of ileus. Thank you for this consult. Will follow with you. History of Present Illness Requesting Physician: Rhett Urrutia DO Reason for Consultation: post-operative medical management Attending Physician: Clark Urrutia DO History of Present Illness 66yo male with history of HTN, hyperlipidemia, and chronic low back pain with radiculopathy of legs presented today for elective lumbar spine decompression/fusion procedure by Dr Ururtia. I saw him post-op on the orthopedic floor. He was resting comfortably. He denied any chest pain, dyspnea, or abdominal pain. Other than his chronic back pain he had been feeling well prior to this surgery. Allergies Allergy/AdvReac Type Severity Reaction Status Date / Time No Known Allergies Allergy Verified 01/29/22 06:59 Home Medications Medication Instructions Recorded Confirmed Type acetaminophen 500 mg capsule 500 mg PO Q6H PRN 12/03/20 01/29/22 History multivitamin 1 tab PO QAM 12/03/20 01/29/22 History bupropion HCl 150 mg tablet,12 hr 150 mg PO BID #60 ea 11/11/21 01/29/22 Rx sustained-release fenofibrate nanocrystallized 145 145 mg PO QAM #90 tab 11/11/21 01/29/22 Rx mg tablet lisinopril 10 mg tablet 10 mg PO QAM #90 tab 11/11/21 01/29/22 Rx simvastatin 20 mg tablet 20 mg PO QAM #90 tab 11/11/21 01/29/22 Rx meloxicam 15 mg tablet 15 mg PO QAM 12/29/21 01/29/22 History Patient History Medical History Anxiety Chronic back pain COVID-19 POS TEST 11/05/20 [facility] COUGH, SOB, DIARRHEA SYMPTOMS RESOLVED Depression History of colon polyps History of hepatitis B History of substance abuse none x 20 yrs Hyperlipidemia Hypertension controlled, stable per pt Obesity Osteoarthritis Surgical History History of anesthesia reaction "KEPT TRYING TO GET UP DURING HIP SURGERY TILL THEY GAVE HIM MORE" History of back surgery History of carpal tunnel release of both wrists History of colonoscopy History of eye surgery RIGHT/LEFT CORNEAL SURGERY History of hip surgery RIGHT History of knee surgery RIGHT SIDE History of reverse total replacement of left shoulder joint History of shoulder surgery LEFT/RIGHT History of tonsillectomy and adenoidectomy Family History (Updated 01/29/22 @ 16:48 by Krishan Mitchell) Mother Alzheimer disease Asthma Depression Breast cancer Diabetes Heart disease Hypertension Stroke Brother COPD (chronic obstructive pulmonary disease) Diabetes Hypertension Father Diabetes Hypertension Pulmonary embolism Sister Diabetes Hypertension Kidney disease Denies family history of Ovarian cancer Prostate cancer Myocardial infarction Lung cancer Colorectal cancer Social History (Updated 01/29/22 @ 16:49 by Krishan Mitchell) Smoking Status: Former smoker Tobacco Type: Cigarettes Age Started Using Tobacco: 19; Age Quit Using Tobacco: 20; Smoking End Date: 2002; Second Hand Exposure: No; Do You Dip or Chew Tobacco: No; Hx Alcohol Use: No Preferred Language: Setswana Communication Ability: Effective Hearing Ability: Normal Candy Feeder Required: No Beliefs That Will Affect Care: None marital status: marital status details: Has a in the [facility] but it is not legal in the [facility] Current Living Situation: Alone current occupational status: disabled current occupation: previously did construction, various factory jobs, [employer] work How many Children do You have: 0 Other Information That Helps Us Care for You: No Feels Safe at Home: Yes Safety Concerns: Feels Safe At This Time Seatbelt Use: sometimes Sunscreen Use: No Assistive Devices: Walker Assistive Devices Comment: ONLY WEARS UPER DENTURE Review of Systems Review of Systems: gen - no fevers, chills, or weight loss eyes - no recent visual change HENT - no dysphagia neck - denies pain CV - no chest pain pulm - no dyspnea at rest; some mild GUERRERO with walking about 1-2 flights of steps GI - no N/V/D/pain - no dysuria neuro - no headache; chronic radicular pain of b/l legs musculo - chronic low back pain endo - denies diabetes skin - no rash Physical Exam Physical Exam: gen - NAD, pleasant eyes - PERRL mouth - MM dry, no lesions neck - no JVD heart - RRR, s1 s2, no murmur lungs - CTA B/L except minimal rales bases abd - mildly distended, BS+, NT, no HSM ext - no edema, pulses 2+ b/l skin - dressings intact on low back neuro - strength 5/5 x 4 exts; DTRs 2+ b/l upper/lower exts psych - a/o x 3 Results & Data ([facility]) Vital Signs (Past 12 Hours) Vital Signs Temp Pulse Pulse Resp BP Pulse Ox 01/29/22 14:28 36.8 C 66 18 118/75 99 01/29/22 13:45 36.7 C 98 H 16 122/75 92 01/29/22 13:16 36.6 C 92 H 16 136/75 93 01/29/22 13:00 94 H 21 136/80 97 01/29/22 12:45 87 18 129/72 95 01/29/22 12:35 36.5 C 76 18 133/73 96 01/29/22 12:25 80 14 138/82 98 01/29/22 12:15 80 18 137/78 97 01/29/22 12:05 75 14 126/76 98 01/29/22 11:55 72 20 121/70 95 01/29/22 11:45 74 16 124/66 95 01/29/22 11:35 72 19 114/67 97 01/29/22 11:25 73 23 126/72 95 01/29/22 11:19 36.3 C L 74 24 138/81 97 01/29/22 07:02 36.8 C 76 20 171/87 H 96 Laboratory Results preop labs Dec 2021 - cbc wnl; bmp wnl; HbA1C 5.6% EKG - Dec 2021 - NSR, no ST changes PG Care Time/CCT Total # of Minutes Spent Total Time Spent with Patient: Total time spent is greater than 50% in coordination of care (as documented) at patient's floor/unit and/or counseling patient: Coding Level of Care Code 78930 Subseq Hosp Care Lvl 3 Diagnoses Neurogenic claudication due to lumbar spinal stenosis M48.062 Hypertension I10 Hyperlipidemia E78.5 Depression with anxiety F41.8 Abdominal distension R14.0
[2022-01-29] MEDS: ceFAZolin 2000MG 2,000 MG/15 ML SYR IV SCH (17:12)
[2022-01-29] MEDS: buPROPion SR 150 MG TABCR PO SCH (20:11)
[2022-01-29] MEDS: DOCUSATE SODIUM/SENNA 50/8.6MG TAB PO SCH (20:12)
[2022-01-30] MEDS: ceFAZolin 2000MG 2,000 MG/15 ML SYR IV SCH (00:25)
[2022-01-30] MEDS: KETOROLAC TROMETHAMINE 15 MG/ML VIAL IV SCH ×2 (02:17→09:15)
[2022-01-30] MEDS: POLYETHYLENE (MIRALAX) 17 GM PACK PO SCH ×4 (05:45→23:57)
[2022-01-30 06:11] LABS: Basophils # (auto) 0.01 K/uL (0-0.2); Basophils % (auto) 0.1 %; Hematocrit (blood only) 34.2 % (42-52); Hemoglobin 11.4 g/dL (14.0-18.0); Immature Granulocytes # (auto) 0.02 K/uL (0.00-0.02); Immature Granulocytes % (auto) 0.2 %; Lymphocytes % (auto) 22.6 %; Mean Corpuscular Hemoglobin 30.6 pg (25-34); Mean Corpuscular Hgb Conc 33.3 g/dL (32-36); Mean Corpuscular Volume 91.7 fL (80-100); Mean Platelet Volume 10.3 fL (7.4-10.4); Monocytes # (auto) 1.41 K/uL (0.11-0.59); Monocytes % (auto) 13.9 %; Neutrophils # (auto) 6.44 K/uL (1.4-6.5); Neutrophils % (auto) 63.2 %; Platelet Count 206 K/uL (130-400); RDW Coefficient of Variation 14.3 % (11.5-14.5); Red Blood Count 3.73 M/uL (4.7-6.1); White Blood Count 10.18 K/uL (4.8-10.8)
[2022-01-30 06:47] LABS: BUN Creatinine Ratio 17.6 (10-20); Creatinine Clr Calc Pharmacy 89.1 ml/min; Est GFR (African American) 105.2 ml/min; Est GFR (Non-African American) 90.8 ml/min; Potassium 3.7 mmol/L (3.5-5.1)
[2022-01-30] MEDS ORDERED: lisinopril 10 MG TAB PO SCH (09:00)
[2022-01-30] MEDS: buPROPion SR 150 MG TABCR PO SCH ×2 (09:15→21:21)
[2022-01-30] MEDS: MULTIVITAMIN TAB PO SCH (09:15)
[2022-01-30] MEDS: FENOFIBRATE NANOCRYSTALLIZED 145 MG TABLET PO SCH (09:15)
[2022-01-30] MEDS: SIMVASTATIN 20 MG TAB PO SCH (09:15)
[2022-01-30] MEDS: dexAMETHasone 6 MG in SYRINGE 0 ML IV SCH (09:15)
--- NOTE | 2022-01-30 13:39 | Orthopedic Progress Note ---
Date of Service January 30, 2022 Assessment & Plan (1) Neurogenic claudication due to lumbar spinal stenosis: Plan: This time we will continue physical therapy monitor his CHETAN operatively discharge home in next few days. Admission and Anticipated Discharge Date Admission Date: January 29, 2022 Subjective Patient's back pain is controlled leg pain improved Physical Exam Physical Exam: Patient has good strength testing. He is comfortable in the chair. Results & Data ([facility]) Vital Signs (Past 12 Hours) Vital Signs Temp Pulse Resp BP Pulse Ox 01/30/22 08:06 36.6 C 77 14 120/69 92 01/30/22 03:38 36.8 C 79 18 124/61 95
[2022-01-30] MEDS: SIMETHICONE 80 MG CHEW PO PRN (17:03)
--- NOTE | 2022-01-30 18:20 | Hospitalist Progress Note ---
Date of Service January 30, 2022 Assessment & Plan (1) Neurogenic claudication due to lumbar spinal stenosis: Plan: POD #1 s/p lumbar decompression/fusion procedure by Dr Urrutia. defer pain management, IV fluids, disposition to Dr Urrutia's team. coleman removed this am. I am concerned about his abd distension - see below. PT, OT per ortho. (2) Hypertension: Plan: BMP wnl/stable. Cont to hold his lisinopril as his BPs are controlled without it. Follow BPs. (3) Hyperlipidemia: Plan: He takes a combination of simvastatin and fenofibrate. These meds are chronic & stable. Cont both. (4) Depression with anxiety: Plan: Continue wellbutrin. (5) Abdominal distension: Plan: Thus far he has had no passage of flatus. He remains distended, but fortunately has had no nausea or emesis and was able to eat breakfast. If any worsening of his distension, if N/V occur, etc - obtain abd x-rays, r/o ileus. Cont senna. Cont miralax - but reduce the dose if gaseous distension persists. Plan: will cont to follow Admission and Anticipated Discharge Date Admission Date: January 29, 2022 Subjective pt sitting in chair comfortably he c/o operative site pain denies leg pains he also c/o abdominal bloating he is not passing flatus or stool able to eat breakfast, however Review of Systems Review of Systems: gen - appetite ok so far despite GI complaints cv - no cp pulm - no dyspnea GI - no pain but is bloated/distended; no nausea or emesis Physical Exam Physical Exam: gen - NAD, comfortable neck - no JVD mouth - MMM heart - RRR, s1 s2, no murmur lungs - CTA b/l, minimal dry rales bases abd - distended, BS+, NT, no HSM ext - no edema, pulses 2+ b/l neuro - strength b/l LEs 5/5 Results & Data Results & Data ([facility]) Vital Signs (Past 12 Hours) Vital Signs Temp Pulse Resp BP Pulse Ox 01/30/22 15:19 36.6 C 79 14 117/71 94 01/30/22 08:06 36.6 C 77 14 120/69 92 Laboratory Results Laboratory Results - last 24 hr 01/30/22 01/30/22 05:33 05:33 WBC 10.18 RBC 3.73 L Hgb 11.4 L Hct 34.2 L MCV 91.7 MCH 30.6 MCHC 33.3 RDW Std Deviation 48.0 H RDW Coeff of Anderson 14.3 Plt Count 206 MPV 10.3 Immature Gran % (Auto) 0.2 Neut % (Auto) 63.2 Lymph % (Auto) 22.6 [place]iwether % (Auto) 13.9 Eos % (Auto) 0.0 Baso % (Auto) 0.1 Neut # (Auto) 6.44 Lymph # (Auto) 2.30 [place]iwether # (Auto) 1.41 H Eos # (Auto) 0.00 Baso # (Auto) 0.01 Immature Gran # (Auto) 0.02 Sodium 140 Potassium 3.7 Chloride 107 Carbon Dioxide 28 Anion Gap 5 BUN 15 Creatinine 0.85 Est Cr Clr Drug Dosing 89.1 Est GFR ( Amer) 105.2 Est GFR (Non-Af Amer) 90.8 BUN/Creatinine Ratio 17.6 Glucose 107 H Calcium 8.0 L PG Care Time/CCT Total # of Minutes Spent Total Time Spent with Patient: Total time spent is greater than 50% in coordination of care (as documented) at patient's floor/unit and/or counseling patient: Coding Level of Care Code 75207 Subseq Hosp Care Lvl 2 Diagnoses Neurogenic claudication due to lumbar spinal stenosis M48.062 Hypertension I10 Hyperlipidemia E78.5 Depression with anxiety F41.8 Abdominal distension R14.0
[2022-01-30] MEDS: bisacodyL 10 MG SUPP PR PRN (19:51)
[2022-01-30] MEDS: DOCUSATE SODIUM/SENNA 50/8.6MG TAB PO SCH (21:20)
[2022-01-31] MEDS: POLYETHYLENE (MIRALAX) 17 GM PACK PO SCH ×4 (05:40→23:54)
[2022-01-31 06:26] LABS: BUN Creatinine Ratio 22.5 (10-20); Calcium 8.8 mg/dl (8.5-10.1); Creatinine Clr Calc Pharmacy 106.6 ml/min; Est GFR (African American) 113.3 ml/min; Est GFR (Non-African American) 97.8 ml/min; Magnesium 1.9 mg/dl (1.7-2.4); Potassium 3.7 mmol/L (3.5-5.1)
[2022-01-31] MEDS: buPROPion SR 150 MG TABCR PO SCH ×2 (09:13→21:05)
[2022-01-31] MEDS: dexAMETHasone 6 MG in SYRINGE 0 ML IV SCH (09:13)
[2022-01-31] MEDS: FENOFIBRATE NANOCRYSTALLIZED 145 MG TABLET PO SCH (09:14)
[2022-01-31] MEDS: MULTIVITAMIN TAB PO SCH (09:14)
[2022-01-31] MEDS: SIMVASTATIN 20 MG TAB PO SCH (09:14)
[2022-01-31] MEDS: SIMETHICONE 80 MG CHEW PO PRN (09:19)
[2022-01-31] MEDS: MAGNESIUM HYDROXIDE SUSP 30 ML UDC PO PRN (09:21)
--- NOTE | 2022-01-31 10:39 | Orthopedic Progress Note ---
Date of Service January 31, 2022 Assessment & Plan (1) Neurogenic claudication due to lumbar spinal stenosis: Plan: At this time encouraged to ambulate as tolerated. I will make him n.p.o. and begin maintenance IV. We will obtain a KUB. I am concerned he is developing a postop ileus. Admission and Anticipated Discharge Date Admission Date: January 29, 2022 Subjective Back pain controlled leg pain markedly improved. He struggling with some nausea and abdominal discomfort. He had positive flatus last night but none this morning. Physical Exam Physical Exam: On exam he is in the chair at the bedside. Is good strength testing. Abdomen is distended and firm. Results & Data ([facility]) Vital Signs (Past 12 Hours) Vital Signs Temp Pulse Resp BP Pulse Ox 01/31/22 07:14 36.9 C 91 H 16 147/73 H 91
--- NOTE | 2022-01-31 12:07 | XRay Report ---
KUB HISTORY: nausea COMPARISON: None. FINDINGS: Extensive posterior fusion involving the lower thoracic spine, lumbar spine, and sacrum. Ri ght hip resurfacing is also noted. Dilated gas-filled loops of large and small bowel are seen through out the abdomen. There is a large amount well-formed stool seen within the proximal colon and descend ing colon. No renal calculi. No ureteral calculi. No pneumoperitoneum or pneumatosis. IMPRESSION: 1. Dilated gas-filled loops of large and small bowel seen throughout the abdomen. Findings favor a po stoperative ileus. 2. Large amount well-formed stool within the proximal colon and descending colon. This likely represe nts constipation and could also account for the suspected ileus. 3. Extensive spinal fusion hardware is noted. ACT 112: Negative or not required by law. Electronically signed by: Jose Montalvo M.D. 01/31/2022 12:05 PM
[2022-01-31] MEDS: SODIUM CHLORIDE 0.9% 1000ML 1,000 ML IV SCH ×2 (12:08→22:49)
[2022-01-31] MEDS ORDERED: bisacodyL 5 MG TABEC PO ONE (12:10)
[2022-01-31] MEDS: bisacodyL 10 MG SUPP PR PRN (12:18)
--- NOTE | 2022-01-31 17:56 | Hospitalist Progress Note ---
Date of Service January 31, 2022 Assessment & Plan (1) Neurogenic claudication due to lumbar spinal stenosis: Plan: POD #2 s/p lumbar decompression/fusion procedure by Dr Urrutia. defer pain management, IV fluids, disposition to Dr Urrutia's team. PT, OT. Abdominal issues - see below. (2) Hypertension: Plan: BMP wnl/stable. Cont to hold his lisinopril as his BPs are still controlled without it. Follow BPs. BMP wnl. (3) Hyperlipidemia: Plan: He takes a combination of simvastatin and fenofibrate. These meds are chronic & stable. Cont both. (4) Depression with anxiety: Plan: Continue wellbutrin. (5) Abdominal distension: Plan: KUB x-ray with combination of mod-severe constipation + ileus. Thus, this may be "obstipation". Agree w/ NPO status. Agree w/ resuming IV fluids. He is already on miralax + senna. Will give dulcolax oral tablet x 1 now. Hopefully he will pass the left-sided stool and start to feel better. Plan: will cont to follow Admission and Anticipated Discharge Date Admission Date: January 29, 2022 Subjective patient sitting in chair during the visit he is very uncomfortable in his abdomen very bloated, really can't eat, appetite is poor passing minimal flatus no stool yet having some pain in upper abdomen denies dyspnea or cp back pain remains but is controlled Review of Systems Review of Systems: gen - no fever cv - no cp pulm - difficult to take a large breath due to abd distension but no cough GI - no emesis despite the distension Physical Exam Physical Exam: gen - NAD, uncomfortable appearing neck - no JVD mouth - MMM heart - RRR, s1 s2, no murmur lungs - CTA b/l, mild dry rales bases, mild decrease in BS b/l abd - severely distended, BS+, mild central tenderness, no HSM ext - no edema, pulses 2+ b/l neuro - strength b/l LEs 5/5 Results & Data Results & Data ([facility]) Vital Signs (Past 12 Hours) Vital Signs Temp Pulse Resp BP Pulse Ox 01/31/22 15:07 36.9 C 89 18 113/75 93 01/31/22 07:14 36.9 C 91 H 16 147/73 H 91 Laboratory Results Laboratory Results - last 24 hr 01/31/22 05:27 Sodium 140 Potassium 3.7 Chloride 106 Carbon Dioxide 30 Anion Gap 4 BUN 16 Creatinine 0.71 Est Cr Clr Drug Dosing 106.6 Est GFR ( Amer) 113.3 Est GFR (Non-Af Amer) 97.8 BUN/Creatinine Ratio 22.5 H Glucose 107 H Calcium 8.8 Magnesium 1.9 Diagnostic Findings KUB X-Ray 01/31/22 10:36 KUB HISTORY: nausea COMPARISON: None. FINDINGS: Extensive posterior fusion involving the lower thoracic spine, lumbar spine, and sacrum. Right hip resurfacing is also noted. Dilated gas-filled loops of large and small bowel are seen throughout the abdomen. There is a large amount well-formed stool seen within the proximal colon and descending colon. No renal calculi. No ureteral calculi. No pneumoperitoneum or pneumatosis. IMPRESSION: 1. Dilated gas-filled loops of large and small bowel seen throughout the abdomen. Findings favor a postoperative ileus. 2. Large amount well-formed stool within the proximal colon and descending colon. This likely represents constipation and could also account for the suspected ileus. 3. Extensive spinal fusion hardware is noted. ACT 112: Negative or not required by law. Electronically signed by: Jose Monatlvo M.D. 01/31/2022 12:05 PM PG Care Time/CCT Total # of Minutes Spent Total Time Spent with Patient: Total time spent is greater than 50% in coordination of care (as documented) at patient's floor/unit and/or counseling patient: Coding Level of Care Code 25956 Subseq Hosp Care Lvl 2 Diagnoses Neurogenic claudication due to lumbar spinal stenosis M48.062 Hypertension I10 Hyperlipidemia E78.5 Depression with anxiety F41.8 Abdominal distension R14.0
[2022-01-31] MEDS: DOCUSATE SODIUM/SENNA 50/8.6MG TAB PO SCH (21:05)
[2022-02-01] MEDS: POLYETHYLENE (MIRALAX) 17 GM PACK PO SCH (05:58)
[2022-02-01 07:22] LABS: BUN Creatinine Ratio 27.6 (10-20); Calcium 8.5 mg/dl (8.5-10.1); Creatinine Clr Calc Pharmacy 130.5 ml/min; Est GFR (African American) 123.1 ml/min; Est GFR (Non-African American) 106.2 ml/min; Potassium 3.7 mmol/L (3.5-5.1)
[2022-02-01] MEDS: MAGNESIUM HYDROXIDE SUSP 30 ML UDC PO PRN (08:30)
[2022-02-01] MEDS: dexAMETHasone 6 MG in SYRINGE 0 ML IV SCH (08:30)
[2022-02-01] MEDS: FENOFIBRATE NANOCRYSTALLIZED 145 MG TABLET PO SCH (08:31)
[2022-02-01] MEDS: SIMVASTATIN 20 MG TAB PO SCH (08:31)
[2022-02-01] MEDS: buPROPion SR 150 MG TABCR PO SCH ×2 (08:31→20:28)
[2022-02-01] MEDS: MULTIVITAMIN TAB PO SCH (08:31)
[2022-02-01] MEDS: SIMETHICONE 80 MG CHEW PO PRN (08:31)
[2022-02-01] MEDS ORDERED: bisacodyL 10 MG SUPP PR STA (08:46)
[2022-02-01] MEDS ORDERED: MoRPHine SULFATE 2 MG/ML CARP IV PRN (08:49)
--- NOTE | 2022-02-01 09:05 | XRay Report ---
KUB HISTORY: Follow up study in a patient with abdominal distention and possible ileus fu on ileus COMPARISON: KUB 01/31/2022 FINDINGS: Persistent gaseous distention of large and small bowel appears stable to slightly improved. Mild fecal retention has improved from prior. No renal calculi. No ureteral calculi. No pneumoperit oneum or pneumatosis. Thoracolumbar spinal fusion hardware. Right hip arthroplasty. IMPRESSION: 1. Persistent ileus pattern. 2. Decreased fecal retention. ACT 112: Negative or not required by law. The above report was generated using voice recognition software. It may contain grammatical, syntax o r spelling errors. Electronically signed by: Jose Guerra M.D. 02/01/2022 9:04 AM
--- NOTE | 2022-02-01 09:10 | Hospitalist Progress Note ---
Date of Service February 01, 2022 Assessment & Plan (1) Neurogenic claudication due to lumbar spinal stenosis: Plan: - POD #3 s/p lumbar decompression/fusion procedure by Dr Urrutia. - Pain management per primary team; however, did change Dilaudid to morphine as decreased effect on the bowel. On tramadol - PT, OT. - Abdominal issues - see below. (2) Ileus: Plan: - increasing abd distention since surgery - KUB done POD#2 showing concern for Ileus - ? Opstipation vs post-op ileus vs SBO - has been receiving Miralax Q6h, Senokot, Colace along a fleets enema and a Dulcolax suppository. - in addition, does have zofran and Dilaudid that decreases bowel motility - hyperactive, high trickle bowel sounds noted with abd distention, abd pain, and lack of flatus - will obtain CT of A/P to help differentiate if there is a true bowel obstruction (as would avoid all stimulants/laxatives from above as this can exacerbate the problem). In addition, this may be therapeutic in the setting of obstipation - stop miralax, senokot and colace. - addition dulcolax suppository today - change dilaudid to morphine (as decreased affect on the bowel) - keep NPO for now - ambulation encouraged - continue to follow closely (3) Hypertension: Plan: BMP wnl/stable. Cont to hold his lisinopril as his BPs are still controlled without it. Follow BPs. (4) Hyperlipidemia: Plan: He takes a combination of simvastatin and fenofibrate-- hold these given NPO status (5) Depression with anxiety: Plan: Continue wellbutrin. Plan: will cont to follow. Plan of care to be D/W Dr. Acevedo Admission and Anticipated Discharge Date Admission Date: January 29, 2022 Subjective Patient seen on daily rounds today. He is POD #3 s/p lumbar decompression, fusion and removal of hardware for neurogenic claudication. Has been complaining of increasing abdominal distention with lack of bowel movement. He has had very limited if any flatus. Yesterday, had abdominal cramping and nausea for which a KUB was performed. This did show postoperative ileus. Today he vocalizes increased abdominal distention. He has been receiving MiraLAX every 6 hours, Senokot, Colace, and had a fleets enema and Dulcolax suppository. Following the enema and Dulcolax suppository, did have some pellet-like stools but symptoms persist. Has not been walking around much. Denies vomiting. Is moving his bladder without difficulty. Review of Systems Review of Systems: All systems reviewed and are unremarkable except as noted in HPI and below Denies fevers, chills, headache, nasal congestion, sore throat, cough, chest pain, shortness of breath, palpitations, orthopnea, PND, vomiting, diarrhea, dysuria, hematuria, frequency, back pain, joint pain or swelling, easy bruising or bleeding, skin lesions or rashes. Physical Exam Physical Exam: General: Resting comfortably in his hospital bed. Appears to be in some discomfort but does not appear ill or toxic NAD. HEENT: Head is AT/NC. Buccal mucosa is moist and pink Neck: No JVD. Negative hepatojugular reflex Cardiac: RRR without M/G/R Lungs: CTA without W/R/R Abdomen: Hyperactive trickles in the left upper quadrant. Abdomen is distended and tender in all quadrants. Extremities: No peripheral clubbing cyanosis or edema Neuro: A&O X4. Cranial nerves II through XII are grossly intact. No focal neuro deficits Skin: No obvious skin lesions or rashes Psych: Appropriate affect. Pleasant and cooperative Results & Data Results & Data ([facility]) Vital Signs (Past 12 Hours) Vital Signs Temp Pulse Resp BP Pulse Ox 02/01/22 07:50 36.6 C 76 18 132/73 94 01/31/22 22:45 36.7 C 82 18 140/72 95 Diagnostic Findings KUB done today: FINDINGS: Persistent gaseous distention of large and small bowel appears stable to slightly improved. Mild fecal retention has improved from prior. No renal calculi. No ureteral calculi. No pneumoperitoneum or pneumatosis. Thoracolumbar spinal fusion hardware. Right hip arthroplasty. IMPRESSION: 1. Persistent ileus pattern. 2. Decreased fecal retention. PG Care Time/CCT Total # of Minutes Spent Total Time Spent with Patient: Total time spent is greater than 50% in coordination of care (as documented) at patient's floor/unit and/or counseling patient: Coding Level of Care Code 92228 Inpt Consult Level 5 Diagnoses Neurogenic claudication due to lumbar spinal stenosis M48.062 Hypertension I10 Hyperlipidemia E78.5 Depression with anxiety F41.8 Ileus K56.7
[2022-02-01] MEDS: FAMOTIDINE 20 MG in SYRINGE 3 ML IV SCH ×2 (09:41→20:30)
[2022-02-01] MEDS: SODIUM CHLORIDE 0.9% 1000ML 1,000 ML IV SCH ×2 (10:43→22:42)
--- NOTE | 2022-02-01 10:48 | Orthopedic Progress Note ---
Date of Service February 01, 2022 Assessment & Plan (1) Neurogenic claudication due to lumbar spinal stenosis: Plan: This time encourage him to ambulate as tolerated. We will continue with his bowel regiment. He is still on ice chips only. Admission and Anticipated Discharge Date Admission Date: January 29, 2022 Subjective Back pain controlled leg pain markedly improved. He was ambulating well yesterday. He did have a small bowel movement yesterday. He denies any nausea or vomiting today. Physical Exam Physical Exam: On exam abdomen is still somewhat distended. He has good strength testing. Results & Data ([facility]) Vital Signs (Past 12 Hours) Vital Signs Temp Pulse Resp BP Pulse Ox 02/01/22 07:50 36.6 C 76 18 132/73 94 01/31/22 22:45 36.7 C 82 18 140/72 95
--- NOTE | 2022-02-01 17:07 | CT Scan Report ---
ABDOMEN AND PELVIS CT WITH ORAL CONTRAST CT DOSE: 709.81 mGy.cm HISTORY: Acute generalized abdominal pain ileus vs sbo? TECHNIQUE: Multiaxial CT images of the abdomen and pelvis were performed following the use of oral co ntrast. A dose lowering technique was utilized adhering to the principles of ALARA. COMPARISON STUDY: KUB of same day FINDINGS: Trace left pleural effusion. Linear bibasilar consolidation suggests atelectasis. No pneuma tosis or pneumoperitoneum. The study is mildly degraded by respiratory motion artifact. Mild cardiome stephy. The unenhanced spleen, pancreas, and gallbladder appear unremarkable. Hepatic steatosis. Unremarkable kidneys. No hydronephrosis. Mildly distended urinary bladder. Prostamegaly. Subcentimeter calculi no kaz layering within the dependent urinary bladder. No abdominal aortic aneurysm or adenopathy. There is no small bowel obstruction. Moderate fecal retention. The sigmoid colon is tortuous and demonstrat es moderate gaseous distention measuring up to 6.5 cm transversely. There is no significant upstream distention to suggest sigmoid volvulus. Normal appendix. Contrast is noted within the cecum. Mild str anding of the mesentery with scattered mesenteric lymph nodes, likely physiologic. Unremarkable soft tissues. Healed chronic left-sided rib fractures. Posterior interbody tayler and screw fusion hardware i s noted at the T12-S1 levels. Air and fluid-filled collection within the operative bed is likely an e xpected postoperative changes. Surgical drainage catheter is noted within the laminectomy bed. L3-L4 discectomy. Right femoral head prosthesis. IMPRESSION: 1. Moderate gaseous distention of the sigmoid colon. No upstream distention identified to suggest sig moid volvulus. No bowel obstruction. 2. Moderate fecal retention. 3. Trace pleural effusions with bibasilar densities suggestive of atelectasis. 4. Prostamegaly with urinary bladder distention and subcentimeter urinary bladder calculi. 5. Postoperative changes of the thoracolumbar spine as above. ACT 112: Negative or not required by law. The above report was generated using voice recognition software. It may contain grammatical, syntax o r spelling errors. Electronically signed by: Jose Guerra M.D. 02/01/2022 5:05 PM
[2022-02-01] MEDS ORDERED: LACTULOSE SYRUP 20 GM/30 ML UDC PO STA (18:06)
[2022-02-02 05:58] LABS: Basophils # (auto) 0.02 K/uL (0-0.2); Basophils % (auto) 0.2 %; Eosinophils # (auto) 0.07 K/uL (0-0.5); Eosinophils % (auto) 0.8 %; Hematocrit (blood only) 33.4 % (42-52); Immature Granulocytes # (auto) 0.01 K/uL (0.00-0.02); Immature Granulocytes % (auto) 0.1 %; Lymphocytes # (auto) 3.56 K/uL (1.2-3.4); Lymphocytes % (auto) 41.1 %; Mean Corpuscular Hemoglobin 30.6 pg (25-34); Mean Corpuscular Hgb Conc 32.9 g/dL (32-36); Mean Corpuscular Volume 92.8 fL (80-100); Mean Platelet Volume 10.1 fL (7.4-10.4); Monocytes # (auto) 0.77 K/uL (0.11-0.59); Monocytes % (auto) 8.9 %; Neutrophils # (auto) 4.24 K/uL (1.4-6.5); Neutrophils % (auto) 48.9 %; Platelet Count 222 K/uL (130-400); RDW Standard Deviation 47.3 fL (36.4-46.3); White Blood Count 8.67 K/uL (4.8-10.8)
[2022-02-02 06:32] LABS: Albumin Globulin Ratio 1.6 (0.9-2); Albumin Level 3.5 gm/dl (3.4-5.0); BUN Creatinine Ratio 21.3 (10-20); Bilirubin,Total 0.4 mg/dl (0.2-1.0); Calcium 7.5 mg/dl (8.5-10.1); Creatinine Clr Calc Pharmacy 124.1 ml/min; Est GFR (African American) 120.6 ml/min; Est GFR (Non-African American) 104.1 ml/min; Globulin 2.2 gm/dl (2.5-4.0); Magnesium 2.1 mg/dl (1.7-2.4); Potassium 3.7 mmol/L (3.5-5.1); Total Protein 5.7 gm/dl (6.0-8.3)
--- NOTE | 2022-02-02 07:18 | Hospitalist Progress Note ---
Date of Service February 02, 2022 Assessment & Plan (1) Neurogenic claudication due to lumbar spinal stenosis: Plan: - POD #4 s/p lumbar decompression/fusion procedure by Dr Urrutia. - Pain management per primary team; however, did change Dilaudid to morphine as decreased effect on the bowel. On tramadol - PT, OT. - Abdominal issues - see below. (2) Ileus: Plan: - increasing abd distention since surgery - KUB done POD#2 showing concern for Ileus - ? Opstipation vs post-op ileus vs SBO - had been receiving Miralax Q6h, Senokot, Colace along a fleets enema and a Dulcolax suppository. - in addition, did have zofran and Dilaudid that decreases bowel motility - CT of A/P done 3 to help differentiate true SBO (as would avoid all stimulants/laxatives from above as this can exacerbate the problem). In addition, done for potentia therapeutic effects in the setting of obstipation --CT showing moderate stool/fecal retention. No obstruction. - Given clarification that no obstruction noted, patient was changed from n.p.o. to clear liquids - In addition, he was treated with lactulose as no success with multiple rounds of MiraLAX. He has since had multiple BMs but follow-up KUB this morning shows still moderate stool - We will give additional lactulose today - Although in questioning, he says that he is moving his bladder without difficulty, will obtain a post void bladder scan to ensure that he is not retaining as this could be contributing to obstipation - encourage ambulation (3) Hypertension: Plan: - Lisinopril held perioperatively. Will resume - Follow BPs. (4) Hyperlipidemia: Plan: He takes a combination of simvastatin and fenofibrate--these were held when NPO. continue to hold for now (5) Depression with anxiety: Plan: Continue wellbutrin. Plan: Plan of care to be D/W Dr. Acevedo Did discuss with primary team. We will continue to follow. Thank you for allowing us to participate in the care of this patient. Admission and Anticipated Discharge Date Admission Date: January 29, 2022 Subjective Patient seen on daily rounds today. Has had multiple BMs overnight. Tolerating clear liquids but reports increased abdominal distention after eating. No abdominal pain. Is passing flatus and again having multiple BMs Review of Systems Review of Systems: All systems reviewed and are unremarkable except as noted in HPI and below Denies fevers, chills, headache, nasal congestion, sore throat, cough, chest pain, shortness of breath, palpitations, orthopnea, PND, vomiting, diarrhea, dysuria, hematuria, frequency, back pain, joint pain or swelling, easy bruising or bleeding, skin lesions or rashes. Physical Exam Physical Exam: General: Resting comfortably in his hospital bed. Appears to be in some discomfort but does not appear ill or toxic NAD. HEENT: Head is AT/NC. Buccal mucosa is moist and pink Neck: No JVD. Negative hepatojugular reflex Cardiac: RRR without M/G/R Lungs: CTA without W/R/R Abdomen: Normoactive BS X4. abdomen is distended and firm but nontender in all quadrants Extremities: No peripheral clubbing cyanosis or edema Neuro: A&O X4. Cranial nerves II through XII are grossly intact. No focal neuro deficits Skin: No obvious skin lesions or rashes Psych: Very flat affect. Pleasant and cooperative Results & Data Results & Data ([facility]) Vital Signs (Past 12 Hours) Vital Signs Temp Pulse Resp BP Pulse Ox 02/01/22 21:33 36.6 C 68 16 136/76 93 Laboratory Results 02/02/22 05:37 02/02/22 05:37 PG Care Time/CCT Total # of Minutes Spent Total Time Spent with Patient: Total time spent is greater than 50% in coordination of care (as documented) at patient's floor/unit and/or counseling patient: Coding Level of Care Code 97779 Inpt Consult Level 4 Diagnoses Neurogenic claudication due to lumbar spinal stenosis M48.062 Ileus K56.7 Hypertension I10 Hyperlipidemia E78.5 Depression with anxiety F41.8
[2022-02-02] MEDS: buPROPion SR 150 MG TABCR PO SCH ×2 (08:33→20:15)
[2022-02-02] MEDS: SODIUM CHLORIDE 0.9% 1000ML 1,000 ML IV SCH ×3 (08:33→23:53)
[2022-02-02] MEDS: FAMOTIDINE 20 MG in SYRINGE 3 ML IV SCH ×2 (08:34→20:16)
--- NOTE | 2022-02-02 10:10 | XRay Report ---
KUB HISTORY: Acute generalized abdominal pain with constipation abd distention/obstipation COMPARISON: CT abdomen and pelvis 02/01/2022 FINDINGS: Moderate fecal retention. There is decreased gaseous distention of the sigmoid colon compar ed to the prior study. Nonobstructive bowel gas pattern. No renal calculi. No ureteral calculi. No p neumoperitoneum or pneumatosis. Extensive postoperative changes of the lower thoracic and lumbar spin e with discectomy changes and interbody tayler and screw fusion redemonstrated. Overlying surgical drain age catheter is present. Right hip arthroplasty.. IMPRESSION: 1. Moderate fecal retention with decreased gaseous distention of the large bowel. 2. Degenerative changes of the thoracolumbar spine with surgical drainage catheter. ACT 112: Negative or not required by law. The above report was generated using voice recognition software. It may contain grammatical, syntax o r spelling errors. Electronically signed by: Jose Guerra M.D. 02/02/2022 10:07 AM
[2022-02-02] MEDS ORDERED: LACTULOSE SYRUP 20 GM/30 ML UDC PO ONE (11:15)
--- NOTE | 2022-02-02 13:27 | Orthopedic Progress Note ---
Date of Service February 02, 2022 Assessment & Plan (1) Neurogenic claudication due to lumbar spinal stenosis: Plan: This time we will continue to encourage ambulation as tolerated. We will advance his diet slowly. Hopefully he will progress we will discharge home next few days. Admission and Anticipated Discharge Date Admission Date: January 29, 2022 Subjective Back pain controlled leg pain improved. Is ambulating well. Is tolerating a liquid diet. Denies any nausea or vomiting. Has had bowel movements. Physical Exam Physical Exam: On exam he is in the chair at the bedside. Appears comfortable. Good strength testing. Abdomen soft. Results & Data ([facility]) Vital Signs (Past 12 Hours) Vital Signs Temp Pulse Resp BP Pulse Ox 02/02/22 08:27 36.5 C 79 16 153/83 H 94
[2022-02-02] MEDS: POLYETHYLENE (MIRALAX) 17 GM PACK PO SCH (18:55)
[2022-02-03] MEDS: lisinopril 10 MG TAB PO SCH (08:11)
[2022-02-03] MEDS: FAMOTIDINE 20 MG in SYRINGE 3 ML IV SCH ×3 (08:11→22:44)
[2022-02-03] MEDS: buPROPion SR 150 MG TABCR PO SCH ×2 (08:12→22:16)
[2022-02-03] MEDS: POLYETHYLENE (MIRALAX) 17 GM PACK PO SCH ×2 (08:12→08:26)
--- NOTE | 2022-02-03 09:45 | Hospitalist Progress Note ---
Date of Service February 03, 2022 Assessment & Plan (1) Neurogenic claudication due to lumbar spinal stenosis: Plan: - POD #5 s/p lumbar decompression/fusion procedure by Dr Urrutia. - Pain management per primary team; however, did change Dilaudid to morphine as decreased effect on the bowel. On tramadol - PT, OT. - Abdominal issues - see below. (2) Ileus: Plan: - increasing abd distention since surgery - KUB done POD#2 showing concern for Ileus - CT of A/P done 3/13 to help differentiate true SBO --> done to help differentiate SBO from obstipation (diagnostically) but also therapeutically (fo r obstipaton) --CT showing moderate stool/fecal retention. No obstruction. - given Miralax Q6h, Senokot, Colace, Dulcolax, Fleets enemas without success - Lactulose given x2 with some but not great success - treated with bowel Miralax (colo prep) with multiple BMs since - urinary retention likely contributing -- bladder outlet obstruction and subsequent bowel compression (3) Urinary retention: Plan: - although patient reports voiding without issues- I have been requesting intermittent PV bladder scanning as I suspected retention to be playing a role in his constipation. --Lastnight with PVR of 261. -- with PVR of 683 - upon further questioning, does have a h/o of this in the past requiring intermittent cee catheter (for which he currently refuses) - did agree to straight cath (yielding 700cc) - agreeable to Flomax now but refuses to take chcf. Start Rx BID x 1 week then daily x 4 weeks - check UA with micro, C&S to r/o UTI as cause on retention but likely with underlying BPH (given his hx) and post-surgical state - will need to follow up with URology upon D/C - staff encouraged to monitor with intermittent bladder scan to ensure patient is without significant retention (4) Hypertension: Plan: - Lisinopril help perioperatively but has since been resumed (5) Hyperlipidemia: Plan: He takes a combination of simvastatin and fenofibrate--these were held when NPO. continue to hold for now but resume upon d/C (6) Depression with anxiety: Plan: Continue wellbutrin. Plan: Plan of care to be D/W Dr. Rollins Did discuss with primary team. We will continue to follow. Thank you for allowing us to participate in the care of this patient. Admission and Anticipated Discharge Date Admission Date: January 29, 2022 Subjective Patient seen on daily rounds today. Has been moving his bowel. Multiple BM's since last night and "annoyed" at frequent BM's. Abdomen less but still somewhat distended. lastnight, a post-void bladder scan done showing PVR of 261 (this was done as I wasn't sure if there was retention that was contributing to constipation-- bladder outlet obstruction) Is c/o mild pain with urination. with persistent complaints, additional PVR obtained showing retention (683cc). Cee catheter ordered and he refused. He reports that he used to be on Flomax in the past and follows urology. Has had retention issues in the past requiring intermittent cee catheter. He is agreeable to stay on Flomax temporarily but refuses terminal carman as "it causes cancer". Review of Systems Review of Systems: All systems reviewed and are unremarkable except as noted in HPI and below Denies fevers, chills, headache, nasal congestion, sore throat, cough, chest pain, shortness of breath, palpitations, orthopnea, PND, vomiting, diarrhea, dysuria, hematuria, frequency, back pain, joint pain or swelling, easy bruising or bleeding, skin lesions or rashes. Physical Exam Physical Exam: General: Resting comfortably in his hospital bed. Appears to be in some discomfort but does not appear ill or toxic NAD. HEENT: Head is AT/NC. Buccal mucosa is moist and pink Neck: No JVD. Negative hepatojugular reflex Cardiac: RRR without M/G/R Lungs: CTA without W/R/R Abdomen: Normoactive BS X4. abd still slightly distended but less firm. Mild suprapubic tenderness. Extremities: No peripheral clubbing cyanosis or edema Neuro: A&O X4. Cranial nerves II through XII are grossly intact. No focal neuro deficits Skin: No obvious skin lesions or rashes Psych: Very flat affect. Pleasant and cooperative Results & Data Results & Data ([facility]) Vital Signs (Past 12 Hours) Vital Signs Temp Pulse Resp BP Pulse Ox 02/03/22 07:24 36.6 C 71 16 145/78 H 97 02/02/22 23:25 36.7 C 78 17 146/83 H 99 Laboratory Results 02/02/22 05:37 02/02/22 05:37 PG Care Time/CCT Total # of Minutes Spent Total Time Spent with Patient: Total time spent is greater than 50% in coordination of care (as documented) at patient's floor/unit and/or counseling patient: Coding Level of Care Code 39005 Inpt Consult Level 4 Diagnoses Neurogenic claudication due to lumbar spinal stenosis M48.062 Ileus K56.7 Hypertension I10 Hyperlipidemia E78.5 Depression with anxiety F41.8 Urinary retention R33.9
[2022-02-03 12:21] LABS: Appearance Urine Clear (Clear); Bilirubin Urine Negative (Negative); Blood Urine Negative (Negative); Color Urine Yellow; Glucose Urine UA Negative (Negative); Ketones Urine Negative (Negative); Leukocyte Esterase Urine Negative (Negative); Nitrite Urine Negative (Negative); Protein Urine Negative (Negative); Specific Gravity Urine 1.012 (1.000-1.030); Urobilinogen Urine Negative (Negative)
[2022-02-03] MEDS: TAMSULOSIN HCL 0.4 MG CAP PO SCH ×2 (13:50→22:16)
--- NOTE | 2022-02-03 14:13 | Orthopedic Progress Note ---
Date of Service February 03, 2022 Assessment & Plan (1) Neurogenic claudication due to lumbar spinal stenosis: Plan: At this time continue physical therapy will maintain his CHETAN drain today. We anticipate discharge home tomorrow. Admission and Anticipated Discharge Date Admission Date: January 29, 2022 Subjective Back pain controlled leg pain improved tolerating diet positive bowel movement Physical Exam Physical Exam: Patient is in the chair at the bedside. Is good strength testing. Appears comfortable. Results & Data ([facility]) Vital Signs (Past 12 Hours) Vital Signs Temp Pulse Resp BP Pulse Ox 02/03/22 07:24 36.6 C 71 16 145/78 H 97
[2022-02-04] MEDS: FAMOTIDINE 20 MG in SYRINGE 3 ML IV SCH (07:41)
[2022-02-04] MEDS: TAMSULOSIN HCL 0.4 MG CAP PO SCH (07:41)
[2022-02-04] MEDS: buPROPion SR 150 MG TABCR PO SCH (07:41)
[2022-02-04] MEDS: lisinopril 10 MG TAB PO SCH (07:41)
--- NOTE | 2022-02-04 08:23 | Discharge Summary ---
Date of Service February 04, 2022 Admission HPI Per Admitting Provider This is a 66-year-old male presents with chronic persistent back and bilateral leg pain. Failing course of nonoperative care is here for surgical invention. Admission Exam (Per Admitting) Constitutional WD/WN, vitals as above Eyes PERRL, conjunctivae normal, anicteric sclerae Neck normal visual inspection Respiratory normal respiratory effort Cardiovascular Extremities: normal capillary refill Gastrointestinal (Abdomen) Inspection/Auscultation: abdomen normal to inspection Musculoskeletal Extremities: extremities normal to inspection Skin no rashes, warm and dry Neurologic normal touch/pain/proprioception and moves all extremities Psychiatric A+Ox3, euthymic affect Specialty Data Urology needs follow up appointment Discharge Data Consultations 01/29/22 13:18 Consult Hospitalist Routine Procedures Performed Operation Date: 01/29/22 07:45 Actual Procedures p L1-L3 Decompression T12-L4 Fusion, Spinal Cord Monitoring, Interbody Fusion L3-L4(Not Applicable) - Clark Urrutia, Hospital Course (1) Urinary retention: Patient has had urinary retention postoperatively. Needs follow-up with urology upon (2) Ileus: Patient developed an ileus postop day 2. CT scan abdomen was performed. This ruled out small bowel obstruction. This was treated with medications. It has since resolved. Last bowel movement was yesterday. Is been cautioned about use of narcotics. (3) Neurogenic claudication due to lumbar spinal stenosis: Patient is being discharged home on postoperative day 6 status post multilevel thoracolumbar decompression and instrumented fusion. Pain is been controlled. Making great progress in physical therapy. Discharge Instructions ACTIVITY RECOMMENDATIONS: SELF CARE INSTRUCTIONS AFTER THORACIC/LUMBAR FUSIONS 1. You may walk to your tolerance. It is good exercise for your legs and back. Expect some back and intermittent leg aches and pains. 2. You may perform "counter-top" level activities (make a sandwich, dior with a project, etc.). 3. No bending or lifting of more than 10 pounds or back twisting of any nature (roll like a log when turning in bed). 4. You may ride in a car for 20-30 minutes at a time. No driving until after your first visit with your doctor. 5. Frequent changes of position and restricting sitting to 30 minutes at a time will help limit the amount of back spasms and stiffness you may experience. 6. You may discontinue the use of ambulatory aids (cane, crutches, etc.) once your strength and confidence allow. 7. You may sizing sprayer the shower and let water strike your incision when you arrive home at least once daily. Do not take a tub bath, sit in a hot tub or go into a swimming pool until after your first recheck in the office. SPECIAL CARE INSTRUCTIONS: VERY IMPORTANT TO READ AND REVIEW A. Your surgical incision has been closed with a cosmetic suture under the skin that will dissolve in about 6 weeks. In 14 days, you can use a pair of clean scissors and cut the suture that is left outside of the skin at the ends of your incision. 1. The small skin tapes can be removed 7 days after surgery if they have not fallen off by that point. 2. You may keep the wound open to air as much as possible to promote healing after post-op day number 5 unless told otherwise by your doctor. 3. If you think the wound looks like it is becoming infected (redness or worsening drainage) and/or you are experiencing fever, chill or worsening back pain and muscle spasms, contact the office so that we may evaluate you as soon as possible. B. Complications are uncommon, but please contact us if you have any signs or symptoms of: 1. wound infection (fever higher than 102.5 degrees F, redness, separation of wound, drainage, or increasing pain from the incision) 2. blood clots in legs (pain, swelling, redness and warmth in legs) 3. urinary tract infection (fever higher than 102.5 degrees F, burning upon urination or increased frequency of urination) 4. nerve problems (inability to walk on your toes or heels, numbness, loss of bowel or bladder control) 5. any other symptoms that concern you C. Please call the office at if you have any concerns or questions about your operation or recovery. D. No smoking! Smoking drastically decreases the chance of a solid fusion. E. Do not take any anti-inflammatory medications (Indocin, Advil, Motrin, Aspirin, Naprosyn, etc.) as these may inhibit the chance of a solid fusion. Tylenol is okay to take for pain. MANAGING PAIN AFTER SPINAL SURGERY 1. Narcotic medication is intended for short-term use and will be provided for surgical pain. Surgical pain usually lasts for a period of 4-6 weeks. Narcotic medication includes Percocet, Vicodin, Darvocet, Tylenol #3 or Lortab. 2. Longer-term pain is more appropriately treated with non-narcotic medication such as Tylenol ES. 3. Muscle spasm is not appropriately treated with narcotics. Muscle relaxers such as Soma, Flexeril or Skelaxin can be used along with Tylenol ES. 4. Remember that we all live with some "aches and pains". This is not unusual or uncommon after an injury or as we get older. a. Back pain is expected and may include muscle spasms for 4 to 6 weeks after surgery. The pain should gradually improve. If the pain worsens for no apparent reason, please contact the office. b. Intermittent leg pain may also be experienced and should not be concerned about unless it worsens for no apparent reason. If so, please contact the office. 5. We will provide appropriate medication within the normal guidelines of their prescribed use. We will also be very cautious and aware of potential abuse and extended duration of patients' medication needs. a. Pain medications are for your comfort and to assist with sleep and rest so that the tissue can heal. They are not provided in order to return to normal activity and should not be used through the day. To do so or worsening pain at night can result from ongoing tissue damage and development of tolerance to the prescribed medicine. 6. Please allow 2-3 days to process refills. Prescriptions will not be mailed but must be picked up at the office. FOLLOW UP VISIT: Keep your scheduled follow-up appointment. Any questions, please call the office at .
--- NOTE | 2022-02-04 15:52 | Hospitalist Progress Note ---
Date of Service February 04, 2022 Assessment & Plan (1) Neurogenic claudication due to lumbar spinal stenosis: Plan: - POD #6 s/p lumbar decompression/fusion procedure by Dr Urrutia. - Pain management per primary team; however, did change Dilaudid to morphine as decreased effect on the bowel. On tramadol - PT, OT. - Abdominal issues - see below. (2) Ileus: Plan: - increasing abd distention since surgery - KUB done POD#2 showing concern for Ileus - CT of A/P done 3/13 to help differentiate true SBO --> done to help differentiate SBO from obstipation (diagnostically) but also therapeutically (fo r obstipaton) --CT showing moderate stool/fecal retention. No obstruction. - given Miralax Q6h, Senokot, Colace, Dulcolax, Fleets enemas without success - Lactulose given x2 with some but not great success - treated with bowel Miralax (colo prep) with multiple BMs since - urinary retention likely contributing -- bladder outlet obstruction and subsequent bowel compression -Has since had a straight catheter with improvement of urinary retention and treatment of his obstipation. Moving his bowels without difficulty. No longer having abdominal distention. Is passing gas. Denies abdominal pain, N/V (3) Urinary retention: Plan: - although patient reports voiding without issues- I have been requesting intermittent PV bladder scanning as I suspected retention to be playing a role in his constipation. --Lastnight with PVR of 261. -- with PVR of 683 - upon further questioning, does have a h/o of this in the past requiring intermittent cee catheter (for which he currently refuses) - did agree to straight cath (yielding 700cc) - agreeable to Flomax now but refuses to take terminal supervisor. Start Rx BID x 1 week then daily x 4 weeks - urinalysis not grossly infected. UC showing no growth - will need to follow up with Urology upon D/C - PV bladder scan today with <250 cc (4) Hypertension: Plan: - Lisinopril help perioperatively but has since been resumed (5) Hyperlipidemia: Plan: He takes a combination of simvastatin and fenofibrate--these were held when NPO. continue to hold for now but resume upon d/C (6) Depression with anxiety: Plan: Continue wellbutrin. Plan: patient medically and HD stable for D/C from a medical standpoint. Plan of care to be D/W Dr. Rollins Did discuss with primary team. Thank you for allowing us to participate in the care of this patient. Admission and Anticipated Discharge Date Admission Date: January 29, 2022 Subjective Patient seen on daily rounds today. Moving his bowel bladder without difficulty. Had a post void bladder scan showing less than 250 cc residual. Denies abdominal pain, tolerating oral intake. Denies diarrhea or constipation. Review of Systems Review of Systems: All systems reviewed and are unremarkable except as noted in HPI and below Denies fevers, chills, headache, nasal congestion, sore throat, cough, chest pain, shortness of breath, palpitations, orthopnea, PND, abdominal pain, nausea, vomiting, diarrhea, constipation, dysuria, hematuria, frequency, back pain, joint pain or swelling, easy bruising or bleeding, skin lesions or rashes. Physical Exam Physical Exam: General: Resting comfortably in his hospital bed. Appears to be in some discomfort but does not appear ill or toxic NAD. HEENT: Head is AT/NC. Buccal mucosa is moist and pink Neck: No JVD. Negative hepatojugular reflex Cardiac: RRR without M/G/R Lungs: CTA without W/R/R Abdomen: Normoactive BS X4. abd still slightly distended but soft. He reports this is baseline Mild suprapubic tenderness. Extremities: No peripheral clubbing cyanosis or edema Neuro: A&O X4. Cranial nerves II through XII are grossly intact. No focal neuro deficits Skin: No obvious skin lesions or rashes Psych: Very flat affect. Pleasant and cooperative Results & Data Results & Data ([facility]) Vital Signs (Past 12 Hours) Vital Signs Temp Pulse Pulse Pulse Resp BP Pulse Ox 02/04/22 10:51 36.7 C 94 H 74 89 18 145/77 H 97 02/04/22 07:35 36.7 C 74 18 145/77 H 97 Laboratory Results 02/02/22 05:37 02/02/22 05:37 PG Care Time/CCT Total # of Minutes Spent Total Time Spent with Patient: Total time spent is greater than 50% in coordination of care (as documented) at patient's floor/unit and/or counseling patient: Coding Level of Care Code 37446 Inpt Consult Level 3 Diagnoses Neurogenic claudication due to lumbar spinal stenosis M48.062 Ileus K56.7 Urinary retention R33.9 Hypertension I10 Hyperlipidemia E78.5 Depression with anxiety F41.8
--- NOTE | 2022-02-06 13:49 | Coding Query ---
Your help is needed for correct coding of this account; please clarify if the patients Post-operative Ileus was: ( ) expected out of the surgery (x ) unexpected complication from the surgery ( )other please specify Thank you Chapis VALDERRAMA
== END 2022-02-04 15:26 | disposition home or self-care (01) | DRG 454 ==
LOC: ASU 06:39 → 3E 07:36